=== PATIENT | male | born 1965 | race Caucasian/White ===

== ENCOUNTER 2023-06-04 10:05 | Emergency (ER) | payer OTHER, SELFPAY ==
[2023-06-04 10:10] VITALS: BP 135/79; BMI 28.6
[2023-06-04 10:27] LABS: % Basophils 1.3 % (0-2); % Eosinophils 3.6 % (0-6); % Immature Granulocytes 0.2 % (0-0.5); % Lymphocytes 30.9 % (20.5-51.1); % Monocytes 18.9 % (1.7-9.3); % Neutrophils 45.1 % (42.2-75.2); Absolute Basophils 0.1 10^3/uL (0-0.2); Absolute Eosinophils 0.2 10^3/uL (0-0.7); Absolute Lymphocytes 1.5 10^3/uL (1.2-3.4); Absolute Monocytes 0.9 10^3/uL (0.1-0.6); Absolute Neutrophils 2.1 10^3/uL (1.4-6.5); Hematocrit 38.4 % (39.0-52.0); Hemoglobin 12.7 g/dL (13.0-18.0); Mean Corp Hgb Conc. 33.1 g/dL (33.0-37.0); Mean Corpuscular Hgb 30.3 pg (27.0-31.0); Mean Corpuscular Volume 91.6 fL (80.0-94.0); Mean Platelet Volume 9.2 fL (7.4-10.4); Nucleated Red Blood Cells % 0 % (-); Platelet Count 303 10^3/uL (130-400); Red Blood Cell Count 4.19 10^6/uL (4.70-6.10); Red Cell Dist. Width 14.9 % (11.5-14.5); White Blood Cell Count 4.8 10^3/uL (4.8-10.8)
[2023-06-04 10:35] LABS: APTT 31.9 Sec (23.4-35.0); INR 0.99; PT 13.3 Sec (11.4-14.6)
[2023-06-04 10:43] LABS: ALT (SGPT) 14 U/L (0-50); AST (SGOT) 20 U/L (17-59); Albumin 3.4 g/dl (3.5-5.0); Alkaline Phosphatase 80 U/L (38-126); Blood Urea Nitrogen 8 mg/dl (9-20); Calcium 8.6 mg/dl (8.4-10.2); Carbon Dioxide 27 mmol/L (22-30); Chloride 104 mmol/L (98-107); Estimated Creatinine Clearance -14 ml/min; Glucose 101 mg/dl (70-99); Potassium 3.6 mmol/L (3.5-5.1); Sodium 138 mmol/L (135-145); Total Bilirubin 0.4 mg/dl (0.2-1.3); Total Protein 6.2 g/dl (6.3-8.2); eGFR > 60.00
--- NOTE | 2023-06-04 10:47 | ED.GENMED ---
History of Present Illness
<MARIA TERESA Florentino - Last Filed: 06/04/23 19:22>
General
Chief Complaint: Chest Pain
Source: patient and records
Exam Limitations: none
Time Seen by Provider: 06/04/23 10:12
Travel History
Have you had any contact with someone who has COVID-19?: No
Do you have any symptoms of coronavirus? Fever > 100 degrees, chills, cough, shortness of breath, sore throat, loss of taste or smell, muscle aches, or headache?: Yes
Symptoms:: Cough and ached
History of Present Illness
History of Present Illness:
This is a 57 y/o male with a PMH of ME, atrial fibrillation, and valvular disease who presents to the ED c/o chest pain, headache, slurred speech, lightheadedness, and confusion that woke him up from sleep this morning. He describes a constant
burning and 'tingling' pain on the left side of his chest that radiates into his right hand with some numbness and weakness. He received nitroglycerin and 324 mg aspirin from EMS on the way to the ED. This pain is worse when he leans over or sits
forward. His headache is a constant sharp ache in the left occipital region of his head with associated photophobia. He states he began getting blurred vision yesterday that has persisted into today. He also admits to 4 episodes of vomiting up
yellow sputum and 6 episodes of diarrhea yesterday.
He describes feeling SOB for the past few weeks and admits to stopping his 14 medications approximately 2 weeks ago because they made him feel tired. He also reports right-sided low back pain approximately 2 weeks ago that has since resolved. He
reports muscle aches and fatigue starting Saturday that prevented him from getting out of bed through Saturday. He states that he has not eaten much in the last week and only urinated 3 times since Saturday. He denies tobacco and drug use. He admits
to drinking an occasional beer.
Past History
<MARIA TERESA Florentino - Last Filed: 06/04/23 19:22>
Past History
ED Past Medical History: Arrthythmia (Paroxysmal atrial fibrillation), CAD (Ischemic cardiomyopathy), CHF, GERD, HTN, Hypercholesterolemia, ME, Valvular disease, Psychiatric (Generalized anxiety disorder, suicide attempt, Depression) and Other
(Alcohol abuse history, pericardial tamponade, retrosternal hematoma, orthostatic hypotension, Headache, PNA, DVT)
ED Past Surgical History: Cardiac (Bioprosthetic mitral valve replacement, single-vessel CABG February 05, 2022) and Orthopedic (Right total knee replacement)
Social History
Tobacco: Former smoker
Alcohol: Former
Drug: Narcotics
Personal:
Living: with family (Common law marrage)
Employment: Employed
Family History
Family History: Cancer (Mother - gastric, father - gastric) and Other (Reviewed and noncontributory)
Review of Systems
<Deanne Lagos [facility] - Last Filed: 06/04/23 19:22>
Review of Systems
All Other Systems: ROS reviewed and negative except as documented in HPI and ROS
Constitutional: Reports other (Confusion); Denies fever
EENT: Reports other (Blurry vision)
Respiratory: Reports no symptoms
Cardiac: Reports chest pain
ABD/GI: Reports nausea, vomiting and diarrhea
: Reports no symptoms
Musculoskeletal: Reports no symptoms
Skin: Reports no symptoms
Neurological: Reports headache, weakness (Right hand), numbness (Right hand) and other (Lightheadedness)
Endocrine: Reports no symptoms
Hematologic/Lymphatic: Reports no symptoms
Phy Exam
<Deanne Lagos NIEVES - Last Filed: 06/04/23 19:22>
General Physical Exam
General Presentation: well appearing and no apparent distress
General age: appears stated age
General Skin: warm
General Habitus: normal
General Mental: alert
General Hydration: dry mucous membranes
Eye Exam
Eye Exam: PERRL
Cardiovascular Exam
Cardiovascular Exam: regular rate/rhythm and normal peripheral pulses (Equal 3+ radial pulses)
Pulmonary Exam
Pulmonary Exam: lungs clear, no respiratory distress, no rales, no crackles, no rhonchi and no wheezing
Gastrointestinal Exam
Gastrointestinal Exam: normal bowel sounds, no pulsatile mass, non distended, surgical scar (Epigastric) and tender (Periumbilical, RLQ)
Neurological Exam
Neurological Exam: alert, oriented x3, no motor deficits, speech normal and sensory deficit (Right digits 1-3)
[place] Coma Scale
Eye Opening: Spontaneous
Verbal Response: Oriented
Motor Response: Obeys Commands
GCS Total Score: 15
Mental
Mental Status: oriented to person, oriented to place and oriented to time
Describe Speech: normal speech
Cranial
Cranial Nerves: normal
Motor
Seizure Activity: none
Tremors: none
Sensory
Sensory Exam: decreased sensation (Right digits 1-3)
Cerebellar
Cerebellar Function: normal finger to nose and normal Romberg test
Skin Exam
Skin Exam: normal color and no rash
Psychiatric Exam
Psychiatric Exam: normal mood/affect
<Milad Nation MD - Last Filed: 06/05/23 08:08>
[place] Coma Scale
GCS Total Score: 15
Scores
<MARIA TERESA Florentino - Last Filed: 06/04/23 19:22>
Heart Score for Chest Pain Patients
STEMI patient?: No
History: Slightly or Non-Suspicious
ECG: Normal
Age: >45 - <65 years
Risk Factors: >/= 3 Risk Factors or History of CAD
Troponin: </= Normal Limit
Heart Score for Chest Pain Patients: 3
Heart Score Risk: 2.5% MACE over next 6 weeks
<Milad Nation MD - Last Filed: 06/05/23 08:08>
Heart Score for Chest Pain Patients
Heart Score for Chest Pain Patients: 3
Heart Score Risk: 2.5% MACE over next 6 weeks
Course
<MARIA TERESA Florentino - Last Filed: 06/04/23 19:22>
Orders/Labs/Results
Orders:
Orders
06/04/23 10:09
ECG [Electrocardiogram (*1)] Urgent
Reason for Study: Chest Pain
06/04/23 10:10
EKG- Treatment ONCE
06/04/23 10:18
Alcohol Urgent
Complete Blood Count/With Diff Urgent
Comprehensive Metabolic Panel Urgent
Erythrocyte Sed Rate Urgent
Comment: ADD ON
Ferritin Urgent
Comment: ADD ON
Folate Urgent
Comment: ADD ON
Free T4 Urgent
Lipase Urgent
PT/INR [Prothrombin Time] Urgent
PTT Urgent
TSH Reflex To Free T4 Urgent
Comment: ADD ON
Troponin I Urgent
Vitamin B12 Urgent
Comment: ADD ON
06/04/23 10:26
COVID-19 Antigen Urgent
Source: Nasal Swab
Influenza A+B Rapid Molecular Urgent
ALONSO Source: Nasal Swab
Specimen Description:
06/04/23 11:36
0.9% Sodium Chloride 500 ml [Nss] 500 ml IV BOLUS
Apixaban [Eliquis] 5 mg PO NOW STA
06/04/23 11:37
CR Chest - 2 Views Urgent
Comment:
Reason For Exam: chest pain
06/04/23 12:07
EKG- Treatment ONCE
06/04/23 12:08
Acetaminophen [Tylenol] 650 mg PO NOW STA
06/04/23 12:55
CT Head W/o Iv Contrast Urgent
Comment:
Reason For Exam: RUE weakness
06/04/23 13:36
Add On- LAB Routine
Comments:: Please add to today's labs or draw as routine
Tests Added?: TSH reflex, Ferritin, Folate, Vit. B12, ESR, EtOH
06/04/23 14:00
Electrocardiogram (*1) Urgent
Reason for Study: Chest Pain
06/04/23 14:34
Troponin I Urgent
06/04/23 15:18
Prochlorperazine [Compazine] 10 mg IV NOW STA
Abnormal Lab Results
06/04/23
10:18
RBC 4.19 L 10^6/uL
(4.70-6.10)
Hgb 12.7 L g/dL
(13.0-18.0)
Hct 38.4 L %
(39.0-52.0)
RDW 14.9 H %
(11.5-14.5)
Absolute Monos (auto) 0.9 H 10^3/uL
(0.1-0.6)
Monocytes % 18.9 H %
(1.7-9.3)
BUN 8 L mg/dl
(9-20)
Creatinine 0.6 L mg/dL
(0.7-1.3)
Glucose 101 H mg/dl
(70-99)
Ferritin 12.2 L ng/ml
(17.9-464.0)
Total Protein 6.2 L g/dl
(6.3-8.2)
Albumin 3.4 L g/dl
(3.5-5.0)
TSH (Reflex) 4.78 H uIU/ml
(0.47-4.68)
06/04/23 10:18
06/04/23 10:18
Vital Signs
Initial and Last Documented VS:
Initial Vital Signs
Temp Pulse Resp BP Pulse Ox
98.4 F 76 16 135/79 100
06/04/23 10:10 06/04/23 10:10 06/04/23 10:10 06/04/23 10:10 06/04/23 10:10
Last Documented Vital Signs
Temp Pulse Resp BP Pulse Ox
98.4 F 66 17 130/81 99
06/04/23 10:10 06/04/23 15:31 06/04/23 11:00 06/04/23 15:31 06/04/23 15:00
<Milad Nation MD - Last Filed: 06/05/23 08:08>
Orders/Labs/Results
Orders:
Orders
06/04/23 10:09
ECG [Electrocardiogram (*1)] Urgent
Reason for Study: Chest Pain
06/04/23 10:10
EKG- Treatment ONCE
06/04/23 10:18
Alcohol Urgent
Complete Blood Count/With Diff Urgent
Comprehensive Metabolic Panel Urgent
Erythrocyte Sed Rate Urgent
Comment: ADD ON
Ferritin Urgent
Comment: ADD ON
Folate Urgent
Comment: ADD ON
Free T4 Urgent
Lipase Urgent
PT/INR [Prothrombin Time] Urgent
PTT Urgent
TSH Reflex To Free T4 Urgent
Comment: ADD ON
Troponin I Urgent
Vitamin B12 Urgent
Comment: ADD ON
06/04/23 10:26
COVID-19 Antigen Urgent
Source: Nasal Swab
Influenza A+B Rapid Molecular Urgent
ALONSO Source: Nasal Swab
Specimen Description:
06/04/23 11:36
0.9% Sodium Chloride 500 ml [Nss] 500 ml IV BOLUS
Apixaban [Eliquis] 5 mg PO NOW STA
06/04/23 11:37
CR Chest - 2 Views Urgent
Comment:
Reason For Exam: chest pain
06/04/23 12:07
EKG- Treatment ONCE
06/04/23 12:08
Acetaminophen [Tylenol] 650 mg PO NOW STA
06/04/23 12:55
CT Head W/o Iv Contrast Urgent
Comment:
Reason For Exam: RUE weakness
06/04/23 13:36
Add On- LAB Routine
Comments:: Please add to today's labs or draw as routine
Tests Added?: TSH reflex, Ferritin, Folate, Vit. B12, ESR, EtOH
06/04/23 14:00
Electrocardiogram (*1) Urgent
Reason for Study: Chest Pain
06/04/23 14:34
Troponin I Urgent
06/04/23 15:18
Prochlorperazine [Compazine] 10 mg IV NOW STA
Abnormal Lab Results
06/04/23
10:18
RBC 4.19 L 10^6/uL
(4.70-6.10)
Hgb 12.7 L g/dL
(13.0-18.0)
Hct 38.4 L %
(39.0-52.0)
RDW 14.9 H %
(11.5-14.5)
Absolute Monos (auto) 0.9 H 10^3/uL
(0.1-0.6)
Monocytes % 18.9 H %
(1.7-9.3)
BUN 8 L mg/dl
(9-20)
Creatinine 0.6 L mg/dL
(0.7-1.3)
Glucose 101 H mg/dl
(70-99)
Ferritin 12.2 L ng/ml
(17.9-464.0)
Total Protein 6.2 L g/dl
(6.3-8.2)
Albumin 3.4 L g/dl
(3.5-5.0)
TSH (Reflex) 4.78 H uIU/ml
(0.47-4.68)
06/04/23 10:18
06/04/23 10:18
Vital Signs
Initial and Last Documented VS:
Initial Vital Signs
Temp Pulse Resp BP Pulse Ox
98.4 F 76 16 135/79 100
06/04/23 10:10 06/04/23 10:10 06/04/23 10:10 06/04/23 10:10 06/04/23 10:10
Last Documented Vital Signs
Temp Pulse Resp BP Pulse Ox
98.4 F 66 17 130/81 99
06/04/23 10:10 06/04/23 15:31 06/04/23 11:00 06/04/23 15:31 06/04/23 15:00
<MARIA TERESA Florentino - Last Filed: 06/04/23 19:22>
MDM/Problems Addressed
MDM/Problems Addressed:
Patient with PMH of ME, atrial fibrillation, and valvular disease presents to ED c/o chest pain, headache, slurred speech, lightheadedness, and confusion that woke him up from sleep this morning. He describes a constant burning and 'tingling' pain
on the left side of his chest that radiates into his right hand with some numbness and weakness. Pain was unresponsive to nitroglycerin and 324 mg aspirin from EMS on the way to the ED. Patient admits to stopping his 14 medications approximately 2
weeks ago. Labs and imaging are unremarkable. Presentation is consistent with viral syndrome.
<MARIA TERESA Florentino - Last Filed: 06/04/23 19:22>
*Critical Care Note
Total Time (30-74mins, 75-104mins- exclusive of procedures): Not Applicable
ED Attending Note
<MARIA TERESA Florentino - Last Filed: 06/04/23 19:22>
-
Portions of this chart may have been created with voice recognition software.� Occasional wrong word or��sound alike� substitutions may have occurred due to the inherent limitations of voice recognition software.
<Milad Nation MD - Last Filed: 06/05/23 08:08>
ED Attending Note
Patient seen and examined by attending physician: Yes
ED Attending Note:
Patient with history of coronary artery disease and recent valve replacement, on aspirin, Coumadin, and Eliquis, presents to ED secondary to intermittent chest pain since yesterday afternoon. Chest pain described as burning and achy across his left
chest, without any alleviating or exacerbating factors. Patient states that his chest pain is similar to chest pain that he has in the past requiring stent placement. Denies shortness of breath. In addition, over the past 2 weeks, patient has had
ongoing fatigue, generalized weakness, coughing, as well as vomiting and diarrhea, along with decreased appetite. Patient also reports mild diffuse headache, without blurry vision or dizziness. In addition, for the past 2 weeks, patient has
stopped taking all of his medications, and his medications 'were making him not feel good'. Denies recent travel or surgery. Denies leg pain or swelling. Denies back pain.
Physical Exam
General: no apparent distress, not acutely ill. afebrile
Head: nc/at. eomi
Neck: supple. no meningeal signs.
Heart: s1/s2 regular rate and rhythm, systolic ejection murmur. equal radial pulses.
Lungs: no acute respiratory distress. clear bilaterally
Abdomen: normal bowel sounds. not tender.
Neuro: alert and oriented. no focal neurological deficits. normal
Skin: no rash
Psychiatric: well kept. interactive and cooperative
Extremities: no edema. no calf tenderness.
Discussed with (cardiology) - will come and evaluate patient in ED. Requesting 2nd trop, which will be done @ 2pm.
Pt will be hydrated and reassessed. CP not responsive to NTG.
Patient with an unremarkable workup in ED, including blood work and imaging studies.
Patient evaluated by cardiology, Dr. Abarca, who feels the patient can be discharged home at this time with recommendation to reinitiate his home medications. Given 30 day supply of Eliquis by cardiology prior to discharge. Recommends patient to be
given script for toprol xl 12.5mg, Atorvastatin 40mg daily, aspirin 81 mg daily, and Eliquis 5mg bid.
Patient also evaluated by Dr. Kern, neurology, who also feels that patient's neurological deficit is likely secondary to migraine headache. Does not need further treatment/evaluation.
Pt's overall presentation is consistent with likely viral syndrome and patient is stable to be discharged home at this time, with strict precaution to not stop taking his medications on his own, and f/u with his [employer] as scheduled next month.
Pt expresses understanding at time of discharge.
Discharge Plan
Departure
Patient Disposition: Home (Routine Discharge)
Date of Disposition: 06/04/23
Time of Disposition: 15:37
Patient with high blood pressure during this ER visit?: Yes
Condition: Good
Discharge Problem:
Headache, Chest pain, Noncompliance with medication regimen, Viral syndrome
Instructions: Chest Pain (DC), Viral Syndrome (DC)
Prescriptions:
New
metoprolol succinate [Toprol XL] 25 mg tablet extended release 24 hr
12.5 mg PO DAILY Qty: 30 0RF
aspirin 81 mg tablet,chewable
81 mg PO DAILY Qty: 30 0RF
atorvastatin 40 mg tablet
40 mg PO DAILY Qty: 30 0RF
Eliquis 5 mg tablet
5 mg PO BID Qty: 60 0RF
No Action
furosemide 40 mg Tablet
40 mg PO DAILY 30 Days Qty: 30 0RF
levothyroxine 25 mcg tablet
25 mcg PO DAILY 30 Days Qty: 30 0RF
pantoprazole 40 mg Tablet,Delayed Release (Dr/Ec)
40 mg PO DAILY 30 Days Qty: 60 0RF
apixaban 5 mg Tablet
5 mg PO BID Qty: 60 0RF
aspirin 81 mg Capsule
81 mg PO DAILY 30 Days Qty: 30 0RF
atorvastatin 80 mg Tablet
80 mg PO QPM 30 Days Qty: 30 0RF
metoprolol succinate 25 mg Tablet Extended Release 24 Hr
12.5 mg PO HS 30 Days Qty: 15 0RF
Patient Comments:
05/31/22---patient thought the bottle said 1 whole tablet plus an 1/2 tablet and took this day.
amiodarone [Pacerone] 100 mg Tablet
100 mg PO DAILY 30 Days Qty: 30 0RF
gabapentin 100 mg Capsule
100 mg PO HS Qty: 30 0RF
Rx Instructions:
started in place of Lyrica
polyethylene glycol 3350 17 gram Powder In Packet
17 g PO DAILY PRN (Reason: constipation) Qty: 30 0RF
Rx Instructions:
new medication for constipation
acetaminophen 325 mg Tablet
650 mg PO Q4HPRN PRN (Reason: Mild Pain / Temp > 101) Qty: 1 0RF
ferrous sulfate 325 mg (65 mg iron) tablet
325 mg PO DAILY Qty: 30 0RF
Referrals:
Jamie Chong MD [Active] - 07/02/23 4:00 pm (You have cardiology follow up with Dr. Chong on July 02 at 4 pm in [address] in the [place] which is behind the hospital. If you are unable to make this appointment please call [phone]
to reschedule. )
UNKNOWN - PT DOES,NOT KNOW [Family Provider] -
Activity Restrictions/Additional Instructions:
As discussed, please follow-up with your [employer] next month for reevaluation. Your prescriptions have been sent electronically to [facility] pharmacy in [place].
Interventions
Interventions:
*Risk Screen - Suicide Last Done: 06/04/23 10:16
*General Assessment Last Done: 06/04/23 10:10
*Neglect/Abuse Screening Last Done: 06/04/23 10:16
*Nursing Disposition Last Done: 06/04/23 15:59
ED- Cardiac Assessment Last Done: 06/04/23 10:05
Discharge Date and Time
Discharge Date/Time: 06/04/23 15:59
[2023-06-04 10:51] LABS: COVID-19 Antigen Negative (Negative)
[2023-06-04 10:51] LABS: Troponin I 0.014 ng/ml
[2023-06-04 11:00] VITALS: BP 113/64
[2023-06-04 11:22] LABS: Lipase 86 U/L (23-300)
[2023-06-04] MEDS: NSS 500 IV (11:59)
[2023-06-04] MEDS: ELIQUIS 5 MG PO (12:00)
[2023-06-04] MEDS: TYLENOL 650 MG PO (12:16)
--- NOTE | 2023-06-04 12:25 | CON.CAR ---
Addendum entered and electronically signed by Sarath Abarca DO 06/04/23 16:22:
I saw and examined the patient.
The Oil Spreader Operator's note was reviewed and I agree with the note.
Comment:
Plan:
EKG and trop stable.
Discussed compliance with meds and follow up as he stopped everything and not followed up.
CP is atypical and with movement.
pt given samples of Eliquis.
Can stay off Amiodarone given the fact that he is maintaining sinus rhythm being off this med
From cardiac standpoint would recommend resuming:
Toprol 12.5 mg daily
Atorvastatin 40 mg daily
Eliquis 5 mg twice a day
Aspirin 81 mg daily
Neuro work up for weakness.
Reviewed with pt and ER.
Original Note:
Consultation
Consultation Request
Date/Time Consultation Requested: 06/04/2023
Date/Time Consultation Performed: 06/04/2023
Requesting Provider: Dr. Nation
Performing Provider: Myla Dunham PA-C for Dr. Sarath Abarca
Reason for Consultation: Chest pain
Medical History
-
History of Present Illness:
Patient is a 57-year-old male with past medical history significant for coronary artery disease status post CABG x 1 and mitral valve replacement January 2022 at [facility], ischemic cardiomyopathy-recovered, heart failure with mildly
reduced ejection fraction, hypertension, hyperlipidemia, paroxysmal atrial fibrillation, pulmonary hypertension, history of alcohol abuse and history of noncompliance. Previously patient had multiple admissions at this institution for recurrent
chest pain. He underwent cardiac catheterization in May 2022 which demonstrated chronic total occlusion of left circumflex, 80% ostial saphenous vein graft to OM with CONSTANCE II flow back flowing from proximal left circumflex. Decision at that
time was made for medical therapy and patient was placed on Imdur in addition to Toprol. Patient failed to follow-up in cardiology office with numerous no-shows and cancellations throughout 2022. Patient admits to discontinuing all his medications
approximately 2 weeks ago because they made him feel tired. Patient reports he started with upper respiratory symptoms approximately 1 week ago but did not seek medical attention and instead stayed in bed. He admits to poor oral hydration and food
intake over the last 4 to 5 days. On 06/03/2023 at approximately 3 PM he noted some intermittent chest pressure/tightness. He continued to have chest tightness and late in the evening noted some numbness and tingling of his right hand. He went to
bed and upon awakening this morning he continued to feel poorly. He went to work and developed severe chest pressure associated with right hand numbness tingling, headache and blurry vision. He reports his boss told him his speech was slurred and
he looked unwell. This prompted patient to come to emergency department for evaluation. IN ED EKG demonstrates normal sinus rhythm with right bundle branch block and T wave abnormality in lateral leads. Initial troponin undetectable. Repeat
troponin pending. Chest x-ray showed no acute cardiopulmonary abnormality. Patient negative for flu and COVID. Patient was provided Eliquis, IV fluid and Tylenol in emergency department. At time of this evaluation he still complains of occasional
intermittent chest discomfort worse with leaning forward or coughing. He still has some right upper extremity numbness tingling and feels that his trip rider strength is reduced. He also notes occasional intermittent blurry vision. Head CT is pending.
PMH:
-chronic HFmrEF
-chronic bifascicular block by EKG
-s/p biological mitral valve replacement 02/05/22
-CAD
s/p CABG x1 - VG to OM by Dr. Meadows at [facility] 02/05/22
Post operative course complicated by pericardial tamponade, atrial fibrillation, retrosternal hematoma
-history of ischemic cardiomyopathy, recovered by echo 02/2022
-scarring of posterior medial papillary muscles
-history of pericardial effusion/large hematoma of anterior mediastinum
-extensive superficial venous thrombosis of R greater saphenous vein
-paroxysmal atrial fibrillation
-pulmonary hypertension
-ETOH history
-anxiety
-hypertension
-hyperlipidemia
-iron deficiency anemia
-h/o COVID illness 12/2021
-History of drug abuse with methamphetamine and amphetamines on tox screen
-noncompliance with medications/follow up
Past Medical History
Past Medical History: Other (See HPI)
Past Surgical History: Cardiac (CABG x 1 with mitral valve replacement 02/05/2022 [facility]) and Orthopedic (Right total knee replacement)
Social History
Tobacco: Non-Smoker
Alcohol: Occasional
Drug: Other (Denies)
Personal: Single
Employment: Employed (Works and lives at [employer] )
Family History
Family History: Early CAD, Hypertension and Other (Stroke)
Allergies / Home Medications
Allergy/AdvReac Type Severity Reaction Status Date / Time
latex Allergy throat Verified 06/04/23 10:15
closes
propoxyphene napsylate Allergy throat Verified 06/04/23 10:15
[From Pam-N 100] closes
Medication Instructions Recorded Confirmed Type
apixaban 5 mg tablet 5 mg PO BID Blood clot 05/30/22 06/06/22 Rx
prevention/tx #60 tabs
aspirin 81 mg capsule 81 mg PO DAILY Blood clot 05/30/22 06/06/22 Rx
prevention/tx 30 days #30 caps
furosemide 40 mg tablet 40 mg PO DAILY Fluid 05/30/22 06/06/22 Rx
retention/Swelling 30 days #30 tabs
levothyroxine 25 mcg tablet 25 mcg PO DAILY Thyroid 30 days 05/30/22 06/06/22 Rx
#30 tabs
pantoprazole 40 mg tablet,delayed 40 mg PO DAILY Gastrointestinal 05/30/22 06/06/22 Rx
release issue 30 days #60 tabs
amiodarone 100 mg tablet (Pacerone) 100 mg PO DAILY Heart 06/01/22 06/06/22 Rx
disease/condition 30 days #30 tabs
atorvastatin 80 mg tablet 80 mg PO QPM High cholesterol 30 06/01/22 06/06/22 Rx
days #30 tabs
metoprolol succinate 25 mg 12.5 mg PO HS Blood pressure 30 06/01/22 06/06/22 Rx
tablet,extended release 24 hr days #15 tabs
acetaminophen 325 mg tablet 650 mg PO Q4HPRN PRN Mild Pain / 06/07/22 Rx
Temp > 101 #1 tab
ferrous sulfate 325 mg (65 mg 325 mg PO DAILY #30 tabs 06/07/22 Rx
iron) tablet
gabapentin 100 mg capsule 100 mg PO HS #30 caps 06/07/22 Rx
polyethylene glycol 3350 17 gram 17 g PO DAILY PRN constipation #30 06/07/22 Rx
oral powder packet ea
Review of Systems
-
History Source: Patient
All other systems: Negative unless noted
Physical Exam
Vital Signs
Temp Pulse Resp BP Pulse Ox
98.4 F 69 17 113/64 97
06/04/23 10:10 06/04/23 11:00 06/04/23 11:00 06/04/23 11:00 06/04/23 11:00
GEN: No distress, awake, Ox3, sitting in bed
HEENT: supple, anicteric, mmm
LUNGS: CTA, no wheezes/rales
CV: Reg, S1/S2, no murmur, rub or gallop
ABD: soft, BS+, NT/ND
EXT: No edema, clubbing or cyanosis
NEURO: Slight weakness RUE 4/5 trip rider strength, otherwise non-focal
SKIN: No rash, warm,dry, pink
Lab Results
06/04/23 10:18
06/04/23 10:18
Troponin I 0.014 ng/ml 06/04/23 10:18
Impression / Plan
-
Primary Tabulating Clerk: Dr. Chong
Assessment:
Presents 06/04/2023 with chest pain, headache, right hand numbness/tingling/weakness and intermittent blurred vision
-chronic HFmrEF
-chronic bifascicular block by EKG
-s/p biological mitral valve replacement 02/05/22
-CAD
s/p CABG x1 - VG to OM by Dr. Meadows at [facility] 02/05/22
Post operative course complicated by pericardial tamponade, atrial fibrillation, retrosternal hematoma
-history of ischemic cardiomyopathy, recovered by echo 02/2022
-scarring of posterior medial papillary muscles
-history of pericardial effusion/large hematoma of anterior mediastinum
-extensive superficial venous thrombosis of R greater saphenous vein
-paroxysmal atrial fibrillation
-pulmonary hypertension
-ETOH history
-anxiety
-hypertension
-hyperlipidemia
-iron deficiency anemia
-h/o COVID illness 12/2021
-History of drug abuse with methamphetamine and amphetamines on tox screen
-noncompliance with medications/follow up
TTE 05/25/2022: EF 45-50%, severely dilated left atrium, bioprosthetic mitral valve, peak/mean gradient 5/3 mmHg, no mitral regurgitation, peak/mean aortic valve gradient 24/15 mmHg, aortic valve area 1.2 cm2, EF was 55% in February
[facility] 05/29/22:LM:LI. LAD:LI. D1 20-30% mid. pLCx LICENSED SURVEYOR at origin. RCA:LI. SVG-OM2 80% ostial and 80-90% distal anastomotic lesion with CONSTANCE II flow and backfilling from prox LCx
Plan:
Patient is a 57-year-old male with past medical history significant for coronary artery disease status post CABG x 1 and mitral valve replacement January 2022 at [facility], ischemic cardiomyopathy-recovered, heart failure with mildly
reduced ejection fraction, hypertension, hyperlipidemia, paroxysmal atrial fibrillation, pulmonary hypertension, history of alcohol abuse and history of noncompliance. Previously patient had multiple admissions at this institution for recurrent
chest pain. He underwent cardiac catheterization in May 2022 which demonstrated chronic total occlusion of left circumflex, 80% ostial saphenous vein graft to OM with CONSTANCE II flow back flowing from proximal left circumflex. Decision at that
time was made for medical therapy and patient was placed on Imdur in addition to Toprol. Patient failed to follow-up in cardiology office with numerous no-shows and cancellations throughout 2022. Patient admits to discontinuing all his medications
approximately 2 weeks ago because they made him feel tired. Patient reports he started with upper respiratory symptoms approximately 1 week ago but did not seek medical attention and instead stayed in bed. He admits to poor oral hydration and food
intake over the last 4 to 5 days. On 06/03/2023 at approximately 3 PM he noted some intermittent chest pressure/tightness. He continued to have chest tightness and late in the evening noted some numbness and tingling of his right hand. He went to
bed and upon awakening this morning he continued to feel poorly. He went to work and developed severe chest pressure associated with right hand numbness tingling, headache and blurry vision. He reports his boss told him his speech was slurred and
he looked unwell. This prompted patient to come to emergency department for evaluation. IN ED EKG demonstrates normal sinus rhythm with right bundle branch block and T wave abnormality in lateral leads. Initial troponin undetectable. Repeat
troponin pending. Chest x-ray showed no acute cardiopulmonary abnormality. Patient negative for flu and COVID. Patient was provided Eliquis, IV fluid and Tylenol in emergency department. At time of this evaluation he still complains of occasional
intermittent chest discomfort worse with leaning forward or coughing. He still has some right upper extremity numbness tingling and feels that his trip rider strength is reduced. He also notes occasional intermittent blurry vision. Head CT is pending.
-Presents with chest pressure associated with right hand numbness tingling, headache and blurry vision.
-Consider checking head CT given complaints concerning for stroke and patient being off Eliquis
-Chest pressure has been ongoing for almost 24 hours with initial negative troponin. Repeat is pending. EKG shows sinus rhythm with bifascicular block similar to prior tracings. Chest x-ray no acute abnormality. Blood pressure is well
controlled. If second troponin is negative would resume usual outpatient cardiac medications.
-Patient has known coronary artery disease and has done very well on medical therapy for almost 1 year. Patient does admit to discontinuing all his medication approximately 2 weeks ago due to fatigue. Called [facility] pharmacy and confirmed that
patient has not refilled majority of his medications since late summer 2022. However he did fill amiodarone and Eliquis in March 2023.
-From cardiac standpoint would recommend resuming:
Toprol 12.5 mg daily
Atorvastatin 40 mg daily
Eliquis 5 mg twice a day
Aspirin 81 mg daily
-History of paroxysmal atrial fibrillation previously on low-dose amiodarone 100 mg a day and anticoagulation with Eliquis 5 mg daily. Would hold on restarting amiodarone would resume Eliquis 5 mg twice a day.
-Discussed with the patient importance of compliance of taking his medication and keeping regular outpatient cardiology and primary care physician follow-ups. Will arrange for outpatient cardiology follow-up.
Data Reviewed
-
EKG: Report Reviewed by me, Discussed with Physician, Discussed with Nurse and Discussed with Patient
Radiology: Report Reviewed by me, Discussed with Physician, Discussed with Nurse and Discussed with Patient
Labs: Labs Reviewed by me, Discussed with Physician, Discussed with Nurse and Discussed with Patient
Old Records: Reviewed
[2023-06-04 12:51] VITALS: BP 141/84
[2023-06-04 13:00] VITALS: BP 132/73
--- NOTE | 2023-06-04 13:42 | CON.NEURO4 ---
Addendum entered and electronically signed by Elder Kern MD 06/04/23 16:50:
Studies reviewed.
I have personally examined the patient. I reviewed and agree with the PIPE FITTER AMMONIA's Note.
My addenda:
Awake, alert, interactive. No acute distress.
Speech intact.
Follows 2-step requests w/o difficulty. No tremor.
Extra-ocular movements grossly intact.
Facial movements full and symmetric. Hearing intact to normal conversational volume.
Normal UE movements bilaterally.
Neck: full ROM.
Chest: no dyspnea
Heart: no JVD
Ext: (-) Clubbing, (-) Cyanosis, (-) Edema
IMPRESSIONS/RECOMMENDATIONS:
Abrupt onset of right hand discomfort
Most likely secondary to return of prior peripheral neuropathy which could be attributed to the patient's prior to overexposure for which the patient was utilizing gabapentin
Start Pregabalin 50 mg 3 times a day
Eventual EMG study of right hand
Blurred vision likely due to migraine
Will continue to follow patient, peripherally.
Original Note:
Documented by User: Maryse Singleton NP 06/04/23 15:24
Consultation - Neurology 4
-
CONSULTING PHYSICIAN: Elder Kern MD
REFERRING PHYSICIAN: ER/Dr. Nation
DICTATED BY: FAY Mtz
DATE/TIME OF REQUEST: 06/04/23
DATE/TIME OF CONSULTATION: 06/04/23
Reason for Consultation: Right hand numbness
History of Present Illness:
This is a 57-year-old right-handed male who has presented to the hospital with report of chest pain, slurred speech, blurred vision, headache, and right hand numbness. Patient has been evaluated by our inpatient Neurology service in the past for
report of headache, blurry vision, and left hand and left leg numbness in the setting of chest pain.
From previous evaluation by Dr. Kern on 05/27/22:
'Patient presented to this hospital's emergency department on May 24, 2022 with acute onset chest pain and shortness of breath.� Patient also reported left hand and leg numbness at that time.� His hospitalization subsequently has been troubled
by significant chest pain requiring a rapid response from hospital staff.
The patient did have a similar report of left-sided numbness immediately following his cardiothoracic surgery.� An evaluation for possible stroke at the outside hospital was performed and described as unremarkable.
Since his hospitalization, the patient did undergo MRI of brain and following same the patient experienced an episode of bilateral blurred vision in addition to his usual left lower and upper extremity weakness and numbness.
�I had chest pain real bad then� after NTG� developed blurriness.�
Continued blurriness, intermittent, only with chest pain and headache.
Blurriness worse in the left more than the right. Headache started 3 days ago immediately prior to onset of blurred vision. No blurriness without headache. Headache behind the left ear, shooting, lasting until medication provided. Headache
improvement is associated with left arm and leg numbness intensity improvement.'
MRI brain and carotid ultrasound were negative for stroke and significant stenosis/dissection. Patient was provided prochlorperazine for migraine and also started on gabapentin and iron supplementation for neuropathy and iron deficiency.
06/04/23: Patient reports that two weeks ago he stopped taking all of his medications due to them making him feel tired. Last Saturday (05/29/23), he reports developing flu-like symptoms including muscle aches, fatigue, and diarrhea lasting 5 days.
He had little to eat or drink. Then yesterday afternoon (06/03/23) he started to have mild chest discomfort. This morning (06/04/23), he reports waking up from sleep at 0330 with severe chest pain radiating into his right hand. His right hand 1st,
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 He also notes a severe left posterior headache associated with photophobia, nausea, and several episodes of vomiting. He went to work as usual
and his boss told him his speech sounded slurred. When he went to push the elevator button his vision was blurry and he had a hard time finding the button. CT head was obtained in the ER and is negative for any acute findings. It demonstrates a
small foci of CSF density within the periventricular white matter bilaterally, lateral to the posterior bodies of the lateral ventricles. These appear stable from previous examinations. ER VS: 98.4 F, HR 76, BP 135/79, RR 16, 100% RA. Alcohol level
is 22. Negative for Flu and COVID. Currently, patient reports that his symptoms are ongoing. He reports that the last time he had a headache was last May 2022. He also notes chronic tingling in bilateral feet. He denies any dizziness, swallowing
difficulty, ataxia, palpitations, and shortness of breath.
Past Medical History: Afib (Eliquis), HTn, HLD, CAD, MR, HFpEF, pulmonary hypertension, pericardial tamponade, retrosternal hematoma, orthostatic hypotension, peripheral neuropathy, anxiety, suicide attempt, premature
Surgical History: CABG x1, MVR, R TKR
Family History: Father- CVAs. Sister- brain tumor.
Social History: Former tobacco. Rare alcohol. Former alcohol abuse. Positive for amphetamines in the past.
Allergies: Latex, propoxyphene napsylate.
Home Medications: See below.
Review of Symptoms:
Patient denies any fever, headache, chest pain, shortness of breath, GI or symptoms.
�Per the HPI.�All systems are reviewed negative except above.
Physical Exam:
The patient is afebrile, abdomen is nondistended, breathing is unlabored, skin is warm and dry, no edema.
NIH Stroke Scale:
I performed the NIH stroke scale on the patient on 06/04/23 at 1345. The patient scored 0 points on the NIH stroke scale assessment, which were assigned as follows: See below.
Neurologic Examination:
The patient is awake, alert and oriented x 3. He is able to follow commands and answer questions appropriately. There is no aphasia or dysarthria. On cranial nerve assessment, pupils are 3 mm bilateral, round and reactive to light and
accommodation. Visual vickers are full. Extraocular movements are intact. Facial sensations are intact and bilaterally symmetrical, there is no facial asymmetry. Hearing is intact bilaterally to normal conversation volume. Tongue palate and uvula
are midline. Sternocleidomastoid strengths are full bilaterally. Motor strengths are 5/5 bilateral upper and lower extremities on medical research Tanana scale. Finger spread and wrist flexion 5/5 bilateral. There is no drift or involuntary
movement noted. Deep tendon reflexes are 2+ bilateral upper and lower extremities and Babinski is absent bilaterally. Sensations of touch, temperature and vibration are intact and bilaterally symmetrical. There was no extinction noted on double
simultaneous stimulation. Coordination is intact by finger to nose bilaterally. Endorses hand pain with Phalen test.
Lab Results: See below.
Neuro Imaging:
1. CT Head 06/04/23: Small foci of CSF density within the periventricular white matter bilaterally, lateral to the posterior bodies of the lateral ventricles. These appear stable from previous examinations, with main differential considerations of
prominent perivascular spaces versus old infarct.
Differentials for the patient's presentation include:
1. Migraine with brainstem features likely producing blurry vision
2. Right hand 1st, 2nd, and 3rd finger numbness, unclear etiology. Possible etiology carpal tunnel syndrome, cervical myelopathy.
3. Low concern for stroke.
4. Chest pain.
5. Medication noncompliance.
6. Iron deficiency anemia.
7. Peripheral neuropathy likely secondary to alcohol abuse.
Patient has the following risk factors for their symptoms: CAD, AFib, hypothyroid, neuropathy, HTN,
IV Tenecteplase/IAT candidacy: Not a candidate due to NIHSS 0, unclear diagnosis.
Recommendations:
-Provide prochlorperazine 10mg IV x1 now for migraine.
-Restart home Eliquis 5mg BID. Aspirin continuation per Cardiology recommendation.
-Checking blood work for metabolic abnormalities.
-Continue home gabapentin and iron supplement.
-Consider EMG as an outpatient for carpal tunnel evaluation.
-If not improvement in symptoms with headache relief, consider further neurological imaging.
Discussed patient care with: Dr. Kern, the patient
Vital Signs and Labs
-
Vital Signs and Labs:
Vital Signs
Temp Pulse Resp BP Pulse Ox
98.4 F 69 17 113/64 97
06/04/23 10:10 06/04/23 11:00 06/04/23 11:00 06/04/23 11:00 06/04/23 11:00
Lab Results
06/04/23 10:18
06/04/23 10:18
PT 13.3 Sec (11.4-14.6) 06/04/23 10:18
INR 0.99 06/04/23 10:18
APTT 31.9 Sec (23.4-35.0) 06/04/23 10:18
Sodium 138 mmol/L (135-145) 06/04/23 10:18
Potassium 3.6 mmol/L (3.5-5.1) 06/04/23 10:18
BUN 8 mg/dl (9-20) L 06/04/23 10:18
Glucose 101 mg/dl (70-99) H 06/04/23 10:18
Calcium 8.6 mg/dl (8.4-10.2) 06/04/23 10:18
Medications
-
Home Medications
Medication Instructions Recorded
apixaban 5 mg tablet 5 mg PO BID Blood clot 05/30/22
prevention/tx #60 tabs
aspirin 81 mg capsule 81 mg PO DAILY Blood clot 05/30/22
prevention/tx 30 days #30 caps
furosemide 40 mg tablet 40 mg PO DAILY Fluid 05/30/22
retention/Swelling 30 days #30 tabs
levothyroxine 25 mcg tablet 25 mcg PO DAILY Thyroid 30 days 05/30/22
#30 tabs
pantoprazole 40 mg tablet,delayed 40 mg PO DAILY Gastrointestinal 05/30/22
release issue 30 days #60 tabs
amiodarone 100 mg tablet (Pacerone) 100 mg PO DAILY Heart 06/01/22
disease/condition 30 days #30 tabs
atorvastatin 80 mg tablet 80 mg PO QPM High cholesterol 06/01/22
days #30 tabs
metoprolol succinate 25 mg 12.5 mg PO HS Blood pressure 06/01/22
tablet,extended release 24 hr days #15 tabs
acetaminophen 325 mg tablet 650 mg PO Q4HPRN PRN Mild Pain / 06/07/22
Temp > 101 #1 tab
ferrous sulfate 325 mg (65 mg 325 mg PO DAILY #30 tabs 06/07/22
iron) tablet
gabapentin 100 mg capsule 100 mg PO HS #30 caps 06/07/22
polyethylene glycol 3350 17 gram 17 g PO DAILY PRN constipation #30 06/07/22
oral powder packet ea
NIH Stroke Score
Subsequent NIH Scale
Date of Subsequent NIH Scale: 06/04/23
Time of Subsequent NIH Scale: 11:30
NIH Stroke Score
Level of Consciousness: 0 - Alert
LOC Questions: 0-Answers both correctly
LOC Commands: 0-Performs both correctly
Best Horizontal Gaze: 0-Normal
Visual Vickers: 0=Normal, no visual loss
Facial Palsy: 0=Normal, symmetrical
Motor - Right Arm: 0=No drift 10 seconds
Motor - Left Arm: 0=No drift 10 seconds
Motor - Right Le-No drift 5 seconds
Motor - Left Le-No drift 5 seconds
Limb Ataxia: 0-Absent
Sensation: 0-Normal
Best Language: 0-No aphasia
Dysarthria: 0-Normal
Extinction and Inattention: 0-No abnormality
Total Score:: 0

Documented by User: Elder Kern MD 06/04/23 16:42
NIH Stroke Score
NIH Stroke Score
Total Score:: 0
[2023-06-04 14:45] LABS: Alcohol 22 mg/dl
[2023-06-04 15:10] LABS: Troponin I < 0.012 ng/ml
[2023-06-04 15:13] LABS: Erythrocyte Sed Rate 17 mm/hour (0-20)
[2023-06-04] MEDS: COMPAZINE 10 MG IV (15:28)
[2023-06-04 15:30] LABS: TSH Reflex To Free T4 4.78 uIU/ml (0.47-4.68)
[2023-06-04 15:31] VITALS: BP 130/81
[2023-06-04 15:34] LABS: Ferritin 12.2 ng/ml (17.9-464.0)
[2023-06-04 15:58] LABS: Free T4 1.08 ng/dl (0.78-2.19)
[2023-06-04 16:05] LABS: Folate 18.9 ng/ml (2.76-20); Vitamin B12 297 pg/ml (239-931)
== END 2023-06-04 15:59 | disposition home or self-care (01) ==
LOC: EMR 10:05
PROVIDERS: EMERGENCY PHYSICIAN Emergency Medicine; OTHER PHYSICIAN Nuclear Medicine Nuclear Cardiology; OTHER PHYSICIAN Psychiatry & Neurology Neurology
DX: B34.9 Viral infection, unspecified (principal); R07.89 Other chest pain; R42 Dizziness and giddiness; R41.0 Disorientation, unspecified; R47.81 Slurred speech; R20.2 Paresthesia of skin; R20.0 Anesthesia of skin; H53.8 Other visual disturbances; R11.10 Vomiting, unspecified; R51.9 Headache, unspecified; R19.7 Diarrhea, unspecified; R06.02 Shortness of breath; Z11.52 Encounter for screening for COVID-19; M54.50 Low back pain, unspecified; Z91.148 Patient's other noncompliance with medication regimen for other reason; I25.2 Old myocardial infarction; I48.0 Paroxysmal atrial fibrillation; I25.10 Atherosclerotic heart disease of native coronary artery without angina pectoris; I25.5 Ischemic cardiomyopathy; I11.0 Hypertensive heart disease with heart failure; D50.9 Iron deficiency anemia, unspecified; I45.2 Bifascicular block; I82.811 Embolism and thrombosis of superficial veins of right lower extremity; E78.00 Pure hypercholesterolemia, unspecified; F19.11 Other psychoactive substance abuse, in remission; F41.9 Anxiety disorder, unspecified; G62.9 Polyneuropathy, unspecified; I27.20 Pulmonary hypertension, unspecified; I50.32 Chronic diastolic (congestive) heart failure; K21.9 Gastro-esophageal reflux disease without esophagitis; Z95.1 Presence of aortocoronary bypass graft; Z95.3 Presence of xenogenic heart valve; Z96.651 Presence of right artificial knee joint; Z86.16 Personal history of COVID-19; Z86.718 Personal history of other venous thrombosis and embolism; Z87.891 Personal history of nicotine dependence; Z88.8 Allergy status to other drugs, medicaments and biological substances; Z91.040 Latex allergy status
CPT/HCPCS: 99285; 96374; 96361; 70450; 71046; 80053; 82077; 82607; 82728; 82746; 83690; 84439; 84443; 84484; 85025; 85610; 85652; 85730; 87502; 87811; 93005

== ENCOUNTER 2023-07-21 14:28 | Inpatient (IN) | payer OTHER, SELFPAY ==
[2023-07-21] VITALS (16 sets, daily range): BP systolic 108–163; BP diastolic 70–115; BMI 29.6
--- NOTE | 2023-07-21 12:02 | ED.GENMED ---
History of Present Illness
General
Chief Complaint: Chest Pain
Source: patient
Exam Limitations: none
Time Seen by Provider: 07/21/23 11:56
History of Present Illness
History of Present Illness:
See MDM
Past History
Past History
ED Past Medical History: Arrthythmia (Paroxysmal atrial fibrillation), CAD (Ischemic cardiomyopathy), CHF, GERD, HTN, Hypercholesterolemia, [place], Valvular disease, Psychiatric (Generalized anxiety disorder, suicide attempt, Depression) and Other
(Alcohol abuse history, pericardial tamponade, retrosternal hematoma, orthostatic hypotension, Headache, PNA, DVT)
ED Past Surgical History: Cardiac (Bioprosthetic mitral valve replacement, single-vessel CABG February 05, 2022) and Orthopedic (Right total knee replacement)
Social History
Tobacco: Former smoker
Alcohol: Former
Drug: Narcotics
Personal:
Living: with family (Common law marrage)
Employment: Employed
Family History
Family History: Cancer (Mother - gastric, father - gastric) and Other (Reviewed and noncontributory)
Phy Exam
Physical Exam
Physical Exam:
See MDM
Scores
Heart Score for Chest Pain Patients
STEMI patient?: No
History: Highly Suspicious
ECG: Significant ST-Depression
Age: >45 - <65 years
Risk Factors: >/= 3 Risk Factors or History of CAD
Troponin: >/= 3 x Normal Limit
Heart Score for Chest Pain Patients: 9
Heart Score Risk: 72.7 % MACE over next 6 weeks
Course
Orders/Labs/Results
Orders:
Orders
07/21/23 11:57
EKG [Electrocardiogram (*1)] Urgent
Reason for Study: Chest Pain
07/21/23 11:58
EKG- Treatment ONCE
07/21/23 12:03
Tib/Fib, Left 2 View [CR Leg Tibia/fibula Left 2 Vw] Urgent
Comment:
Reason For Exam: distal anterior may injury
07/21/23 12:16
Complete Blood Count/With Diff Urgent
Comprehensive Metabolic Panel Urgent
Manual Differential Urgent
NT-proBNP Urgent
Troponin I Urgent
07/21/23 13:09
Consult Cardiology [CARDIOLOGY CONSULT] Routine
Consulting Provider: Jamie Chong
Was physician already notified: Yes
07/21/23 13:11
Aspirin Chewable [Low Strength Aspirin] 324 mg PO NOW STA
Nitroglycerin Sublingual [Nitrostat (Sublingual)] 0.4 mg SL NOW STA
Nitroglycerin Sublingual [Nitrostat (Sublingual)] 0.4 mg SL [id number] PRN
Abnormal Lab Results
07/21/23
12:16
RBC 4.29 L 10^6/uL
(4.70-6.10)
Hgb 12.8 L g/dL
(13.0-18.0)
Hct 38.2 L %
(39.0-52.0)
RDW 15.3 H %
(11.5-14.5)
Monocytes (Manual) 14 H %
(2-9)
Chloride 108 H mmol/L
(98-107)
Creatinine 0.6 L mg/dL
(0.7-1.3)
Glucose 105 H mg/dl
(70-99)
Troponin I 0.066 H* ng/ml
07/21/23 12:16
07/21/23 12:16
Vital Signs
Initial and Last Documented VS:
Initial Vital Signs
Temp Pulse Resp Pulse Ox
98.1 F 81 17 98
07/21/23 11:58 07/21/23 11:58 07/21/23 11:58 07/21/23 11:58
Last Documented Vital Signs
Temp Pulse Resp Pulse Ox
98.1 F 81 17 97
07/21/23 11:58 07/21/23 11:58 07/21/23 11:58 07/21/23 12:09
MDM/Problems Addressed
Differential Diagnosis Includes:
HPI and MDM Narrative:
58-year-old male presenting with left leg pain. Patient states he injured his leg on his exercise bike. He was having trouble controlling the bleeding. He is on Eliquis. On arrival, the bleeding has subsided. Patient incidentally complaining of
chest discomfort. He states this has been ongoing since yesterday. Symptoms are worse with exertion. Patient given 4 baby aspirin by EMS
Will obtain x-ray of his leg. Screening EKG shows ST depressions laterally. Will obtain troponin
Physical exam
General: Well appearing and non-toxic
HEENT: protecting airway
Neck: appears supple
CV: No evidence of cyanosis. Regular rate and rhythm
Resp: No accessory muscle use. Lungs clear
Abd: Non-distended
Extremities: Abrasion to distal left leg. No active bleeding
Neuro: alert
Psych: Normal affect
Skin: Intact
Problems Addressed including Acute and Chronic Conditions affecting care:
1. Chest pain
Acuity: acute
Prognosis: stable
Details: Given duration of symptoms will obtain troponin. EKG shows ST depressions with T wave inversions laterally which appears persistent with his prior EKG
2. Leg pain
Acuity: acute
Prognosis: stable
Details: Will obtain x-ray rule out fracture
Updates
Patient found to have an elevated troponin. Cardiology made aware. Will give dose of nitroglycerin. Will admit given the ongoing chest pain with worsening EKG and elevated troponin
Differential Diagnosis (but not limited to): ACS, fracture, noncardiac chest pain
Testing considered: Chest x-ray
Drug therapy (if applicable): OTC meds, please see d/c instruction regarding Rx drugs
Amount and/or Complexity of Data Reviewed
Clinical info obtained from: Patient
External data reviewed: N/A
Labs I independently reviewed (but not limited to): Elevated troponin
Radiology: X-ray independently reviewed: No tibial fracture noted
Pulse Ox: not hypoxic
EKG independently reviewed: Sinus rhythm, left axis, ST depression and T wave inversion laterally
Locker Room Attendant: N/A
Critical Care: N/A
Risk of Complication:
Social Determinants of health: Good social support
Discussed with other providers: Cardiology, hospitalist
Escalation of Care includes Admit/Obs: Given the worsening EKG with elevated troponin, will admit
Occasional wrong word or 'sound a like' substitutions may have occurred due to the inherent limitations of voice recognition software. Read the chart carefully and recognize, using context, where substitutions have occurred.
*Critical Care Note
Total Time (30-74mins, 75-104mins- exclusive of procedures): Not Applicable
ED Attending Note
-
Portions of this chart may have been created with voice recognition software.� Occasional wrong word or��sound alike� substitutions may have occurred due to the inherent limitations of voice recognition software.
Discharge Plan
Departure
Patient Disposition: Admit
Date of Disposition: 07/21/23
Time of Disposition: 13:13
Admit to: Telemetry
Presentation/result/management discussed w/ accepting MD/DO: Hospitalist
Discharge Problem:
Acute non-ST elevation myocardial infarction (NSTEMI)
Prescriptions:
No Action
furosemide 40 mg Tablet
40 mg PO DAILY 30 Days Qty: 30 0RF
levothyroxine 25 mcg tablet
25 mcg PO DAILY 30 Days Qty: 30 0RF
pantoprazole 40 mg Tablet,Delayed Release (Dr/Ec)
40 mg PO DAILY 30 Days Qty: 60 0RF
apixaban 5 mg Tablet
5 mg PO BID Qty: 60 0RF
aspirin 81 mg Capsule
81 mg PO DAILY 30 Days Qty: 30 0RF
atorvastatin 80 mg Tablet
80 mg PO QPM 30 Days Qty: 30 0RF
metoprolol succinate 25 mg Tablet Extended Release 24 Hr
12.5 mg PO HS 30 Days Qty: 15 0RF
Patient Comments:
05/31/22---patient thought the bottle said 1 whole tablet plus an 1/2 tablet and took this day.
amiodarone [Pacerone] 100 mg Tablet
100 mg PO DAILY 30 Days Qty: 30 0RF
gabapentin 100 mg Capsule
100 mg PO HS Qty: 30 0RF
Rx Instructions:
started in place of Lyrica
polyethylene glycol 3350 17 gram Powder In Packet
17 g PO DAILY PRN (Reason: constipation) Qty: 30 0RF
Rx Instructions:
new medication for constipation
acetaminophen 325 mg Tablet
650 mg PO Q4HPRN PRN (Reason: Mild Pain / Temp > 101) Qty: 1 0RF
ferrous sulfate 325 mg (65 mg iron) tablet
325 mg PO DAILY Qty: 30 0RF
metoprolol succinate [Toprol XL] 25 mg tablet extended release 24 hr
12.5 mg PO DAILY Qty: 30 0RF
aspirin 81 mg tablet,chewable
81 mg PO DAILY Qty: 30 0RF
atorvastatin 40 mg tablet
40 mg PO DAILY Qty: 30 0RF
Eliquis 5 mg tablet
5 mg PO BID Qty: 60 0RF
Referrals:
AKASH TADEO MD [Family Provider] -
Interventions
Interventions:
*Risk Screen - Suicide Last Done: 07/21/23 11:58
*General Assessment Last Done: 07/21/23 11:58
*Neglect/Abuse Screening Last Done: 07/21/23 11:58
ED- Fall Risk Assessment Last Done: 07/21/23 12:09
*ED COVID-19 Vaccine History Last Done: 07/21/23 11:58
ED- Cardiac Assessment Last Done: 07/21/23 12:09
--- NOTE | 2023-07-21 12:15 | EDRN ---
Received patient from home via EMS. Patient called EMS for a bleeding cut on his left lower leg then told them that he has been having chest pain for several days. Patient with c/o 8 out of 10 chest pain on arrival. Patient received ASA 324mg PO
prior to arrival. Patient stated that he cut his left may Saturday on the pedal of his bike and took the bandage off today that EMS placed and he started to bleed. Patient stated that he's had intermittent chest pain for the past few days and has
been SOB when he walks short distances. Patient stated that he has not missed any of his doses of his medications. Patient with c/o pain and swelling left lower leg and left foot. +2 pedal pulse bilaterally. Patient with c/o increased numbness in
his left foot.
[2023-07-21 12:31] LABS: Hematocrit 38.2 % (39.0-52.0); Hemoglobin 12.8 g/dL (13.0-18.0); Mean Corp Hgb Conc. 33.5 g/dL (33.0-37.0); Mean Corpuscular Hgb 29.8 pg (27.0-31.0); Mean Platelet Volume 8.9 fL (7.4-10.4); Nucleated Red Blood Cells % 0 % (-); Platelet Count 283 10^3/uL (130-400); Red Blood Cell Count 4.29 10^6/uL (4.70-6.10); Red Cell Dist. Width 15.3 % (11.5-14.5); White Blood Cell Count 5.7 10^3/uL (4.8-10.8)
[2023-07-21 12:42] LABS: ALT (SGPT) 19 U/L (0-50); AST (SGOT) 33 U/L (17-59); Albumin 3.9 g/dl (3.5-5.0); Alkaline Phosphatase 103 U/L (38-126); Blood Urea Nitrogen 10 mg/dl (9-20); Calcium 8.6 mg/dl (8.4-10.2); Carbon Dioxide 22 mmol/L (22-30); Chloride 108 mmol/L (98-107); Estimated Creatinine Clearance > 125 ml/min; Glucose 105 mg/dl (70-99); Potassium 3.8 mmol/L (3.5-5.1); Sodium 136 mmol/L (135-145); Total Bilirubin 0.6 mg/dl (0.2-1.3); Total Protein 6.8 g/dl (6.3-8.2); eGFR > 60.00
[2023-07-21 12:56] LABS: Absolute Neutrophils -Man Diff 2.9 10^3/uL (1.4-6.5); Band Neutrophils 0 % (0-3); Eosinophils 3 % (0-6); Hypochromasia 1+; Lymphocytes 32 % (20-51); Monocytes 14 % (2-9); Normal RBC Morphology No; Platelets Checked Yes; Segmented Neutrophils 51 % (42-75); Total Cells Counted 100
[2023-07-21 13:01] LABS: NT-proBNP 1090 pg/ml; Troponin I 0.066 ng/ml
[2023-07-21] MEDS: NITROSTAT (SUBLINGUAL) 0.400000000000000022 MG SL ×3 (13:15→16:02)
--- NOTE | 2023-07-21 13:25 | HPS.HSE ---
Addendum entered and electronically signed by Dede Choi MD 07/21/23 20:10:
I saw and examined the patient.
The COLLATOR or PA's note was reviewed and I agree with the note.
Comment:
58M Afib CAD CHF GERD HTN HLD PA Valvular Dz NAYA Depression, Orthostatic Hypotension, DVT p/w multiple complaints including chest pain left upper extremity numbness and shortness of breath.� Prompted to come to ED when he started having left-sided
chest heaviness and left arm numbness, intermittent unclear duration each episode.� Prior to chest pain patient also reported recent LLE minor cut, two days ago, excessive bleeding d/t Eliquis, treated by EMS with bandage, bleeding since resolved.
�Day prior to presentation to ED, patient reported developing exertional dyspnea,�hot flashes,�runny nose, congestion, and diarrhea.� Patient also reported headache dizziness blurry vision worse with activity.� Further reported COVID exposure week
prior.� ER evaluation was notable for troponin and BNP elevation and concern ST depression EKG.� Received nitro with improvement in chest pain symptoms.� VSS
Physical Exam
General: No pallor, cyanosis, or jaundice.
HEENT: Throat clear. PERRLA Normocephalic atraumatic
NECK: Supple. No JVD Carotid Bruits
RESPIRATORY: Lungs clear to auscultation. No crackles wheezes stridor
CVS: S1, S2 normal. RRR.� No murmur, rub or gallop.
ABDOMEN: Soft, non-tender. No distension. BS+/normal.
EXTREMITIES: LLE wound noted small cut non-bleeding, no pitting edema
WAITER/WAITRESS FORMAL: AOx3
# Chest pain possible acute coronary syndrome
#Headache/nasal congestion/diarrhea likely viral, COVID Flu neg
#left LE swelling/pain
#Paroxysmal Atrial Fibrillation
#Possible Acute on Chronic HFpEF
#GERD
#dizziness possibly Orthostatic Hypotension
#Hypothyroidism
#iron def anemia
#Neuropathy on gabapentin and Lyrica
#HLD
IVU
Trend troponin
Cardio Consult
LLE XR noted no acute abn�s
Check venous duplex
Cont home eliquis amiodarone metoprolol
Pain control
Duresis as per cardio
Daily weight I/O
Monitor orthostatic vitals
Check ECHO
Original Note:
Family Physician
-
Family Physician: AKASH TADEO MD
Chief Complaint
-
Left-sided chest pain
History of Present Illness
58-year-old with past medical history for A-fib, coronary artery disease, congestive heart failure, GERD, hypertension, hyperlipidemia, PA, valvular disease, generalized anxiety, depression, orthostatic hypotension, DVT presented to us with left
lower extremities bleeding after he nicked his leg on bike. It happened on Saturday, he was able to call EMS and they placed a Band-Aid. Yesterday he started having short of breath which was worse with exertion. Stated hot flashes. Patient also
complained of runny nose, congestion. Patient stated he had an exposure to COVID last week. Patient stated some headache and dizziness which is worse with activity. Patient also complained of blurry vision. Today morning he started having
left-sided chest heaviness and left arm numbness, which is constant and nonexertional. Patient also complained of diarrhea since yesterday. Denied abdominal pain, nausea, vomiting. Patient denies any dysuria hematuria.
In the ER noted elevated Trope. He received nitro in the ER. Admitting for further management
Medical History
Past Medical History
Past Medical History: Reports Other
Additional Past Medical History:
Paroxysmal A-fib
Coronary artery disease
Ischemic cardiomyopathy
CHF
GERD
Hypertension
Hyperlipidemia
MRI
Valvular disease
Anxiety disorder
Depression
Alcohol abuse
Pericardial tamponade
Retrosternal hematoma
Orthostatic hypotension
DVT
Past Surgical History: Reports Other
Additional Past Surgical History:
Coronary artery bypass graft
Right total knee replacement
Social History
Tobacco: Non-smoker
Alcohol: Occasional
Drug: None
Personal: Single
Living: Alone
Employment: Employed
Family History
Family History: Not pertinent
Allergies / Home Medications
Allergies reflects when Allergies were last updated in [email or web address].
Home Medications with original date entered in [email or web address]
Allergy/Medication List:
Allergies
Allergy/AdvReac Type Severity Reaction Status Date / Time
latex Allergy throat Verified 06/04/23 10:15
closes
propoxyphene napsylate Allergy throat Verified 06/04/23 10:15
[From [facility]] closes
Home Medications
apixaban 5 mg tablet 5 mg PO BID Blood clot prevention/tx #60 tabs 05/30/22
furosemide 40 mg tablet 40 mg PO DAILY Fluid retention/Swelling 30 days #30 tabs 05/30/22
levothyroxine 25 mcg tablet 25 mcg PO DAILY Thyroid 30 days #30 tabs 05/30/22
pantoprazole 40 mg tablet,delayed release 40 mg PO DAILY Gastrointestinal issue 30 days #60 tabs 05/30/22
amiodarone 100 mg tablet (Pacerone) 100 mg PO DAILY Heart disease/condition 30 days #30 tabs 06/01/22
ferrous sulfate 325 mg (65 mg iron) tablet 325 mg PO DAILY #30 tabs 06/07/22
gabapentin 100 mg capsule 100 mg PO HS #30 caps 06/07/22
polyethylene glycol 3350 17 gram oral powder packet 17 g PO DAILY PRN constipation #30 ea 06/07/22
atorvastatin 40 mg tablet 40 mg PO DAILY #30 tabs 06/04/23
metoprolol succinate 25 mg tablet,extended release 24 hr (Toprol XL) 12.5 mg PO DAILY #30 tabs 06/04/23
pregabalin 100 mg capsule 100 mg PO DAILY 07/21/23
Review of Systems
-
Constitutional: Reports No Symptoms
EENT: Reports No Symptoms
Respiratory: Reports Trouble Breathing
Cardiac: Reports Chest Pain
Abdomen/GI: Reports No Symptoms and Diarrhea
: Reports No Symptoms
Musculoskeletal: Reports No Symptoms
Skin: Reports No Symptoms
Neurological: Reports Dizzy and Headache
Endocrine: Reports No Symptoms
Hematologic/Lymphatic: Reports No Symptoms
Psych: Reports No Symptoms
Physical Exam
Vital Signs
Vital Signs
Temp Pulse Resp Pulse Ox
98.1 F 81 17 97
07/21/23 11:58 07/21/23 11:58 07/21/23 11:58 07/21/23 12:09
Physical Exam
General: Well Developed, Well Nourished and No Apparent Distress
HEENT: NormoCephalic, Moist mucous membranes and Atraumatic
Respiratory: Clear
Cardiac: S1/S2 and Regular Rhythm; No Murmur or Rub
GI: Soft, Non Tender, Non Distended and Normal Bowel Sounds; No Organomegaly
Rectal: Deferred by Provider
Musculoskeletal: No Clubbing, No Cyanosis, No Edema and Other (Left lower extremity edema)
Skin: No Rash
Neuro: AO x 3 and Nonfocal/grossly intact
Psych: Calm
Laboratory Results
-
07/21/23 12:16
07/21/23 12:16
Laboratory Results
Total Bilirubin 0.6 mg/dl (0.2-1.3) 07/21/23 12:16
AST 33 U/L (17-59) 07/21/23 12:16
ALT 19 U/L (0-50) 07/21/23 12:16
Alkaline Phosphatase 103 U/L (38-126) 07/21/23 12:16
Troponin I 0.066 ng/ml H* 07/21/23 12:16
Data Reviewed
-
Diagnostic Radiology: Report Reviewed by me
Lab Data: Labs Reviewed by me
Impression/Plan
-
# Chest pain likely acute coronary syndrome
-Troponin 0.066
-EKG with ST depression and T wave inversion
-Received nitro in ER
-asa in ER
-trend trop
-Cardiology consulted
#Headache/nasal congestion/diarrhea likely viral
-recent exposure to covid
-obtain covid and flu
-Tylenol prn for CHÁVEZ
#left LE swelling/pain
-x ray pending
-elevate the left LE
-obtain Duplex
#Paroxysmal Atrial Fibrillation
�- In sinus rhythm at present.
�- Continue� Amiodarone; Eliquis ,metoprolol
�- Cardiology eval as noted above.
#Chronic HFpEF
�- furosemide continued
-not in acute exacerbation
#GERD
-PPI continued
#dizzy likely from Orthostatic Hypotension
�- Patient was previously on midodrine which was discontinued during recent hospitalizations.
�- Monitor orthostatic signs during hospital stay
#Hypothyroidism
�- Continue current T4 supplementation.
#iron def anemia
-ferrous sulfate continued
#Neuropathy on gabapentin and Lyrica
#HLD
-statin continued
#DVT Prophylaxis:� On Eliquis
#Code Status:� Full
[2023-07-21 14:27] LABS: COVID-19 Antigen Negative (Negative)
--- NOTE | 2023-07-21 15:54 | CON.CAR ---
Consultation
Consultation Request
Date/Time Consultation Requested: 07/21/2023 13: 00
Date/Time Consultation Performed: 07/21/2023 13: 30
Requesting Provider: Nella
Performing Provider: Arlette
Reason for Consultation: Chest pain, shortness of breath
Medical History
-
History of Present Illness:
History of Present Illness:
Tre has past medical history significant for coronary artery disease status post CABG x 1 and mitral valve replacement January 2022 at [facility], ischemic cardiomyopathy-recovered, heart failure with mildly reduced ejection fraction,
hypertension, hyperlipidemia, paroxysmal atrial fibrillation, pulmonary hypertension, history of alcohol abuse and history of noncompliance.� Previously patient had multiple admissions at this institution for recurrent chest pain.� He underwent
cardiac catheterization in May 2022 which demonstrated chronic total occlusion of left circumflex, 80% ostial saphenous vein graft to OM with CONSTANCE II flow back flowing from proximal left circumflex.� Decision at that time was made for medical
therapy and patient was placed on Imdur in addition to Toprol.�
Patient failed to follow-up in cardiology office with numerous no-shows and cancellations. He has stopped all of his medications in the past as well. He was seen in the ER in May 2023 with complaints of chest pain and right hand numbness. He
was discharged. Of note he had stopped all of his medications 2 weeks prior to that ER visit.
He presents to the ER with left leg pain after injuring his leg on exercise bike. He had difficulty controlling the bleeding. In ER the bleeding have subsided. He incidentally mentioned to ER staff he had chest discomfort and shortness of breath
and was admitted for further workup and treatment.
He claims to have shortness of breath with walking minimal distances. He also has chest heaviness. 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
PMH:
-chronic HFmrEF
-chronic bifascicular block by EKG
-s/p biological mitral valve replacement 02/05/22
-CAD
s/p CABG x1 - VG to OM by Dr. Meadows at [facility] 02/05/22
Post operative course complicated by pericardial tamponade, atrial fibrillation, retrosternal hematoma-history of ischemic cardiomyopathy, recovered by echo 02/2022
-scarring of posterior medial papillary muscles
-history of pericardial effusion/large hematoma of anterior mediastinum
-extensive superficial venous thrombosis of R greater saphenous vein
-paroxysmal atrial fibrillation
-pulmonary hypertension
-ETOH history
-anxiety
-hypertension
-hyperlipidemia
-iron deficiency anemia
-h/o COVID illness 12/2021
-History of drug abuse with methamphetamine and amphetamines on tox screen
-noncompliance with medications/follow up
Past Medical History
Past Medical History: Other (See HPI)
Past Surgical History: Cardiac (CABG x 1 with mitral valve replacement 02/05/[address] [facility] by Dr. Meadows) and Orthopedic (Right total knee replacement surgery)
Social History
Tobacco: Non-Smoker
Alcohol: Occasional
Drug: None
Personal: Single
Living: Alone
Employment: Employed (Works and lives at [employer])
Family History
Family History: Early CAD, Hypertension and Other (Stroke)
Allergies / Home Medications
Allergy/AdvReac Type Severity Reaction Status Date / Time
latex Allergy throat Verified 06/04/23 10:15
closes
propoxyphene napsylate Allergy throat Verified 06/04/23 10:15
[From Pam-N 100] closes
Medication Instructions Recorded Confirmed Type
apixaban 5 mg tablet 5 mg PO BID Blood clot 05/30/22 07/21/23 Rx
prevention/tx #60 tabs
furosemide 40 mg tablet 40 mg PO DAILY Fluid 05/30/22 07/21/23 Rx
retention/Swelling 30 days #30 tabs
levothyroxine 25 mcg tablet 25 mcg PO DAILY Thyroid 30 days 05/30/22 07/21/23 Rx
#30 tabs
pantoprazole 40 mg tablet,delayed 40 mg PO DAILY Gastrointestinal 05/30/22 07/21/23 Rx
release issue 30 days #60 tabs
amiodarone 100 mg tablet (Pacerone) 100 mg PO DAILY Heart 06/01/22 07/21/23 Rx
disease/condition 30 days #30 tabs
ferrous sulfate 325 mg (65 mg 325 mg PO DAILY #30 tabs 06/07/22 07/21/23 Rx
iron) tablet
gabapentin 100 mg capsule 100 mg PO HS #30 caps 06/07/22 07/21/23 Rx
polyethylene glycol 3350 17 gram 17 g PO DAILY PRN constipation #30 06/07/22 07/21/23 Rx
oral powder packet ea
atorvastatin 40 mg tablet 40 mg PO DAILY #30 tabs 06/04/23 07/21/23 Rx
metoprolol succinate 25 mg 12.5 mg PO DAILY #30 tabs 06/04/23 07/21/23 Rx
tablet,extended release 24 hr
(Toprol XL)
pregabalin 100 mg capsule 100 mg PO DAILY 07/21/23 07/21/23 History
Review of Systems
-
History Source: Patient
All other systems: Negative unless noted
Constitutional: No Symptoms
EENT: No Symptoms
Respiratory: Trouble Breathing
Cardiac: Chest Pain
Abdomen/GI: No Symptoms
: No Symptoms
Musculoskeletal: No Symptoms
Skin: No Symptoms
Neurological: No Symptoms
Endocrine: No Symptoms
Hematologic/Lymphatic: No Symptoms
Physical Exam
Vital Signs
Temp Pulse Resp BP Pulse Ox
98.1 F 75 24 116/81 98
07/21/23 11:58 07/21/23 15:15 07/21/23 15:15 07/21/23 15:09 07/21/23 15:15
Lab Results
07/21/23 12:16
07/21/23 12:16
Troponin I 0.066 ng/ml H* 07/21/23 12:16
Okh-H-Tycyhuqnkbi Pept 1090 pg/ml 07/21/23 12:16
General: Well developed, well nourished in NAD.
Neck: Supple, no JVD, HJR, carotids +2 B/L, no bruits bilaterally.
Heart: Non displaced PMI, RRR, no murmurs, No S3, S4, no rubs.
Lungs: Clear to auscultation bilaterally, no wheeze, rhonchi, rubs bilaterally,
normal expiratory phase.
Abdomen: Normal bowel sounds, soft, non-tender, non-distended.
Extremities: No clubbing, cyanosis or edema bilaterally.
Neuro: Grossly nonfocal, awake, alert and oriented x3.
Impression / Plan
-
Primary Sport Psychologist: [facility] durability technician on-call
Assessment:
Presents with left leg pain after an injury on his exercise bike
Incidentally complaining of dyspnea with minimal exertion and also chest heaviness
Admitted because of abnormal ECG and troponin of 0.066
Also possible acute diastolic CHF with proBNP of 1090
-chronic HFmrEF
-chronic bifascicular block by EKG
-s/p biological mitral valve replacement 02/05/22
-CAD
s/p CABG x1 - VG to OM by Dr. Meadows at [facility] 02/05/22
Post operative course complicated by pericardial tamponade, atrial fibrillation, retrosternal hematoma-history of ischemic cardiomyopathy, recovered by echo 02/2022
-scarring of posterior medial papillary muscles
-history of pericardial effusion/large hematoma of anterior mediastinum
-extensive superficial venous thrombosis of R greater saphenous vein
-paroxysmal atrial fibrillation
-pulmonary hypertension
-ETOH history
-anxiety
-hypertension
-hyperlipidemia
-iron deficiency anemia
-h/o COVID illness 12/2021
-History of drug abuse with methamphetamine and amphetamines on tox screen
-noncompliance with medications/follow up
TTE 05/25/2022: EF 45-50%, severely dilated left atrium, bioprosthetic mitral valve, peak/mean gradient 5/3 mmHg, no mitral regurgitation, peak/mean aortic valve gradient 24/15 mmHg, aortic valve area 1.2 cm2, EF was 55% in February
[facility] 05/29/22:LM:LI. LAD:LI. 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 RCA:LI.� SVG-OM2 80% ostial and 80-90% distal anastomotic lesion with CONSTANCE II flow and backfilling from prox LCx
Plan:
He has significantly noted chest chest heaviness after presenting for evaluation of left leg pain following injury on his exercise bike
He also complains of short of breath with minimal exertion and has elevated bnp
There may be an element of acute diastolic CHF
His ECG remains abnormal but might be slightly worse
Will try IV Lasix
Continue to track troponins and check echocardiogram
Of note patient has a history of signing out AGAINST MEDICAL ADVICE if pain medications are not given
Data Reviewed
-
EKG: Tracing Personally Visualized and interpreted
Medical Tests (Nuc Med, Echo etc): Report Reviewed by me
Labs: Labs Reviewed by me
Old Records: Reviewed
[2023-07-21] MEDS: LASIX 40 MG IV (16:34)
[2023-07-21] MEDS: DILAUDID 0.5 MG IV ×2 (16:50→22:43)
[2023-07-21 16:54] LABS: Troponin I 0.066 ng/ml
--- NOTE | 2023-07-21 17:39 | PTCARENOTE ---
Pt received from the ED awake, alert and oriented. Pt assisted to bed using the walker. Pt having difficulty ambulating due to the pain in the left lower leg and foot. Pt c/o of 7/10 chest heaviness with mild sob. Bp 139/91, sat 99%. 02 applied at
2Lnc, ECG done with no changes. Medicated with nitro 1/150 SL x 1 with complete relief. Medicated with Dilaudid as ordered for foot and leg pain with complete relief. Pt denies any other issues at this time. Presently eating dinner. Voiding large
amounts of clear yellow urine after receiving IV lasix.
[2023-07-21] MEDS: ELIQUIS 5 MG PO (19:41)
[2023-07-21 21:56] LABS: Troponin I 0.067 ng/ml
--- NOTE | 2023-07-21 22:00 | PTCARENOTE ---
Assumed care at 1900. Patient with left lower leg tenderness,limping on leg,small abrasion and leg elevated on pillows. Patient sent to US on on stretcher. Does complain of shortness of breath with exertion. Lungs Clear,HOB elevated. Can not lye
flat in bed. Has been sleeping in a recliner. NSR BBB, PVC's. Has a nose bleed that seems to have stopped. Patient in bed HOB elevated 45 degrees,call wong in reach
--- NOTE | 2023-07-21 23:46 | PTCARENOTE ---
Dilaudid given for left leg pain. Patient is pain free.
[2023-07-22] VITALS (19 sets, daily range): BP systolic 126–194; BP diastolic 86–124; PULSE 85–97; BMI 28.6
[2023-07-22 04:27] LABS: Hematocrit 38.5 % (39.0-52.0); Hemoglobin 12.8 g/dL (13.0-18.0); Mean Corp Hgb Conc. 33.2 g/dL (33.0-37.0); Mean Corpuscular Hgb 29.8 pg (27.0-31.0); Mean Corpuscular Volume 89.7 fL (80.0-94.0); Mean Platelet Volume 9.3 fL (7.4-10.4); Platelet Count 274 10^3/uL (130-400); Red Blood Cell Count 4.29 10^6/uL (4.70-6.10); Red Cell Dist. Width 14.8 % (11.5-14.5); White Blood Cell Count 7.2 10^3/uL (4.8-10.8)
[2023-07-22] MEDS: TYLENOL 650 MG PO (04:44)
[2023-07-22 04:51] LABS: Blood Urea Nitrogen 13 mg/dl (9-20); Calcium 9.2 mg/dl (8.4-10.2); Carbon Dioxide 29 mmol/L (22-30); Chloride 96 mmol/L (98-107); Estimated Creatinine Clearance 109 ml/min; Glucose 101 mg/dl (70-99); HDL Cholesterol 95 mg/dl; LDL Cholesterol, Calculated 61 mg/dl; Potassium 3.6 mmol/L (3.5-5.1); Sodium 133 mmol/L (135-145); Total Cholesterol 186 mg/dl (50-199); Triglyceride 150 mg/dl (10-149); Very Low Density Lipoprotein 30 mg/dl (0-30); eGFR > 60.00
[2023-07-22] MEDS: PACERONE 100 MG PO (06:22)
[2023-07-22] MEDS: SYNTHROID 25 MCG PO (06:22)
[2023-07-22] MEDS: TOPROL XL 12.5 MG PO (06:22)
--- NOTE | 2023-07-22 08:39 | PTCARENOTE ---
Rec'd pt from prev nsg shift AAOx3, a little drowsy but easily arousable this AM. Pt w/no c/o CP or SOB. Pt's VS stable w/HR in 80's & BP mildly elevated at 163/92. Plan of care discussed w/pt & no addtl needs at this time. Plan of care ongoing.
[2023-07-22 09:27] LABS: Glycohemoglobin (HgbA1c) 5.5 % (4.0-5.6)
[2023-07-22] MEDS: PROTONIX 40 MG PO (09:46)
[2023-07-22] MEDS: FEOSOL 325 MG PO (09:46)
[2023-07-22] MEDS: LASIX 40 MG IV (09:46)
[2023-07-22] MEDS: ELIQUIS 5 MG PO ×2 (09:46→20:27)
[2023-07-22] MEDS: LIPITOR 40 MG PO (09:46)
[2023-07-22] MEDS: FLUSH (NSS) 2 FLUSH IV (09:49)
--- NOTE | 2023-07-22 10:35 | CARDSERVLU ---
Echocardiogram with Lumason completed after protocol screening completed. Allergies verified.
Patent IV site: __R AC___
IV site flushed with 0.9% NaCl pre and post administration.
Diluted bolus method utilized to enhance visualization of ventricular juares.
Total volume given: _2.5___ mL
Patient tolerated all procedures well without complications.
--- NOTE | 2023-07-22 10:57 | PTCARENOTE ---
Pt c/o 6/10 'chest pressure' after going to the BR. Pt' VS stable, SpO2 level 97% on RA. EKG done. property technician at bedside for ordered Echocardiogram. Dr Chong notified. Plan of care ongoing.
[2023-07-22] MEDS: NITROSTAT (SUBLINGUAL) 0.400000000000000022 MG SL (11:27)
--- NOTE | 2023-07-22 13:15 | W.PN.HOSP.TC ---
Today's Communication/Plan
-
IV Lasix
Echo
avoid opiates
possible DC in 24 hours
Assessment / Plan
Assessment / Plan
Assessment:
Acute on chronic HFmrEF
- continue IV Lasix - requires intensive monitoring of I/Os, weights, lytes
- DCA Cards following
- Echo: pending
chest pain
HX of CAD s/p CABG x1 - VG to OM by Dr. Meadows at [facility] 02/05/22
- rare, intermittent but improved with SL Nitro
- continue home meds
- avoid Dilaudid or other opiates
LLE skin abrasion from trauma related to hitting his stationary bike
- Xray negative
Headache/nasal congestion/diarrhea likely viral, COVID Flu neg
- supportive care
Hx of Bio MVR
Parox A. Fib
- continue Amio/Eliquis/BB
Hx of extensive superficial venous thrombosis of R greater saphenous vein
Pulmonary hypertension
ETOH history
Anxiety
Essential hypertension - continue BB
Hyperlipidemia - statin
h/o COVID illness 12/2021
History of drug abuse with methamphetamine and amphetamines on tox screen
noncompliance with medications/follow up
GERD - continue PPI
Hypothyroidism - continue replacement
iron def anemia
Neuropathy on gabapentin and Lyrica
DVT ppx: Eliquis
Code: Full
Anticipated Discharge: Within 24 hours
Subjective/Interval History
-
Date of Service: July 22, 2023
earlier episode of chest pain improved with SL Nitro, no associated SOB/f/c
Weight down 4kg per scale
Objective Data
-
Labs:
Laboratory Results
07/22/23
03:35
WBC 7.2
Hgb 12.8 L
Hct 38.5 L
Plt Count 274
Sodium 133 L
Potassium 3.6
Chloride 96 L
Carbon Dioxide 29
BUN 13
Creatinine 0.7
Glucose 101 H
Calcium 9.2
Vital Signs:
Vital Signs
Temp Pulse Resp BP Pulse Ox
98.1 F 84 20 147/98 97
07/22/23 11:05 07/22/23 12:45 07/22/23 11:05 07/22/23 11:31 07/22/23 11:05
I&O
07/21/23 07/22/23 07/23/23
06:59 06:59 06:59
Intake Total 240 / 240 480 / 480
Output Total 2450 / 2450 500 / 500
Balance -2210 / -2210 -20 / -20
Physical Exam
-
General: No Apparent Distress
HEENT: Normocephalic and Atraumatic
Respiratory: Clear to Auscultation; Negative Wheezes or Rales
Cardiac: Regular Rhythm and S1/S2
GI: Soft and Nontender
Musculoskeletal: Edema, Right Lower Extrem, Edema, Left Lower Extrem and Other (LLE skin abrasion from trauma)
Neuro: AO x 3
Hematologic / Lymphatic: No Lymphadenopathy
Psych: Calm
Data Reviewed
-
Total Time Spent with Patient (in minutes): 51
Labs: Labs Reviewed by me
--- NOTE | 2023-07-22 13:31 | W.PN.CARDCBS ---
Addendum entered and electronically signed by Jamie Chong MD 07/22/23 13:50:
I saw and examined the patient.
The [employer] or PA's note was reviewed and I agree with the note.
Comment: General: Well developed, well nourished in NAD.
Neck: Supple, no JVD, HJR, carotids +2 B/L, no bruits bilaterally.
Heart: Non displaced PMI, RRR, no murmurs, No S3, S4, no rubs.
Lungs: Scattered rhonchi
Extremities: No clubbing, cyanosis or edema bilaterally.
Neuro: Grossly nonfocal, awake, alert and oriented x3.
He complains of chest pain and shortness of breath but looks very comfortable. He received Dilaudid for leg pain. Continue IV Lasix. Check echocardiogram. Troponins are flat.
Original Note:
Today's Communication / Plan
-
Ongoing IV diuresis
Impression / Plan
-
Primary Food Sales Clerk: [facility] tier lift operator on-call
Assessment:
Presents with left leg pain after an injury on his exercise bike
Incidentally complaining of dyspnea with minimal exertion and also chest heaviness
Admitted because of abnormal ECG and troponin of 0.066
Also possible acute diastolic CHF with proBNP of 1090
Acute on chronic HFmrEF
chronic bifascicular block by EKG
s/p biological mitral valve replacement 02/05/22
CAD
s/p CABG x1 - VG to OM by Dr. Meadows at [facility] 02/05/22
Post operative course complicated by pericardial tamponade, atrial fibrillation, retrosternal hematoma-history of ischemic cardiomyopathy, recovered by echo 02/2022
scarring of posterior medial papillary muscles
history of pericardial effusion/large hematoma of anterior mediastinum
extensive superficial venous thrombosis of R greater saphenous vein
paroxysmal atrial fibrillation
pulmonary hypertension
ETOH history
anxiety
hypertension
hyperlipidemia
iron deficiency anemia
h/o COVID illness 12/2021
History of drug abuse with methamphetamine and amphetamines on tox screen
noncompliance with medications/follow up
TTE 05/25/2022: EF 45-50%, severely dilated left atrium, bioprosthetic mitral valve, peak/mean gradient 5/3 mmHg, no mitral regurgitation, peak/mean aortic valve gradient 24/15 mmHg, aortic valve area 1.2 cm2, EF was 55% in February
[facility] 05/29/22:LM:LI. LAD:LI. 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 RCA:LI.� SVG-OM2 80% ostial and 80-90% distal anastomotic lesion with CONSTANCE II flow and backfilling from prox LCx
Plan:
-Troponin was flat at 0.067. Will managed as a nonischemic myocardial injury Troponin elevation due to acute HF
-Weight is down 7 lbs overnight and he reports symptomatic improvement. Cont Lasix 40 mg IV daily. Patient was taking Lasix 40 mg PO daily prior to admission.
-Cre stable at 0.7
-ECG reviewed by me and patient is in SR. He has a h/o pAfib. Outpatient doses of amiodarone 100 mg daily and Eliquis 5 mg BID have been continued.
-QTc 536 ms, recheck ECG in AM
Progress Note - Food Sales Clerk
Subjective
Date of Service: July 22, 2023
No chest pain
Objective
Labs:
07/22/23 03:35
07/22/23 03:35
Labs
Hgb 12.8 g/dL (13.0-18.0) L 07/22/23 03:35
Hct 38.5 % (39.0-52.0) L 07/22/23 03:35
Plt Count 274 10^3/uL (130-400) 07/22/23 03:35
Sodium 133 mmol/L (135-145) L 07/22/23 03:35
Potassium 3.6 mmol/L (3.5-5.1) 07/22/23 03:35
BUN 13 mg/dl (9-20) 07/22/23 03:35
Creatinine 0.7 mg/dL (0.7-1.3) 07/22/23 03:35
Glucose 101 mg/dl (70-99) H 07/22/23 03:35
Troponins
07/21/23 07/21/23 07/21/23
12:16 16:16 21:25
Troponin I 0.066 H* 0.066 H* 0.067 H*
Vital Signs and I&O:
Vital Signs
Temp Pulse Resp BP Pulse Ox
98.1 F 84 20 147/98 97
07/22/23 11:05 07/22/23 12:45 07/22/23 11:05 07/22/23 11:31 07/22/23 11:05
Vital Signs
Temp Pulse Resp BP Pulse Ox
98.1 F 84 20 147/98 97
07/22/23 11:05 07/22/23 12:45 07/22/23 11:05 07/22/23 11:31 07/22/23 11:05
Intake & Output
07/20/23 07/21/23 07/22/23 07/23/23
05:59 06:59 06:59 06:59
Intake Total 240 / 240 480 / 480
Output Total 2450 / 2450 500 / 500
Balance -2210 / -2210 -20 / -20
Physical Exam
Physical Exam
GEN: NAD. AAOx3
HEENT: EOMI
LUNGS: CTA B/L
CV: Reg
ABD: +BS
EXT: No edema B/L
NEURO: Non-focal
SKIN: No rash
--- NOTE | 2023-07-22 13:38 | CM ---
Reviewed chart. Met with Mr. Yates to review discharge plans. He states prior to admission he resides in the [facility]. He states he has been there for four years. He states prior to admission he was independent with adls and uses a
rolling walker for ambulation. He states he has a rolling walker at home and no other DME in the home. He states he has a prescription plan and uses [facility]. He states his friend will provide transportation home. Medical work-up in progress.
The discharge plan is to return back to the [facility] when medically stable.
--- NOTE | 2023-07-22 17:59 | PTCARENOTE ---
Pt CP free after 1 dose of SL Nitroglycerin earlier today. Pt's VS stable. Pt reporting less LLE pain as well. Plan of care ongoing.
[2023-07-22] MEDS: OCEAN, SALINE MIST 1 SPRAYS NASAL (21:59)
--- NOTE | 2023-07-23 00:28 | PTCARENOTE ---
Pt without complaints of CP. does note 'stuffy' nose- ocean nasal spray order obtained. POC discussed- pt frequently asking for snacks. Ambulating the as a self. SR w/ BBB and PVCs. HR 70s to 80s.
--- NOTE | 2023-07-23 03:10 | W.PN.UPDATE ---
Update Note
Progress Note Update
Patient with c/o 'stuffy' feeling associated with cough and need to blow nose. Covid and Flu swabs were negative. Order placed for [place] Saline Mist 2 sprays each nare QID PRN nasal congestion.
[2023-07-23 04:07] VITALS: BP 138/93
[2023-07-23 04:48] LABS: Hematocrit 39.7 % (39.0-52.0); Hemoglobin 13.6 g/dL (13.0-18.0); Mean Corp Hgb Conc. 34.3 g/dL (33.0-37.0); Mean Corpuscular Hgb 29.6 pg (27.0-31.0); Mean Corpuscular Volume 86.3 fL (80.0-94.0); Platelet Count 296 10^3/uL (130-400); Red Cell Dist. Width 14.8 % (11.5-14.5); White Blood Cell Count 6.2 10^3/uL (4.8-10.8)
[2023-07-23 05:08] LABS: Blood Urea Nitrogen 13 mg/dl (9-20); Calcium 9.5 mg/dl (8.4-10.2); Carbon Dioxide 28 mmol/L (22-30); Chloride 97 mmol/L (98-107); Estimated Creatinine Clearance 109 ml/min; Glucose 113 mg/dl (70-99); Potassium 3.4 mmol/L (3.5-5.1); Sodium 134 mmol/L (135-145); eGFR > 60.00
[2023-07-23 05:23] VITALS: BMI 28.2
[2023-07-23] MEDS: SYNTHROID 25 MCG PO (06:20)
[2023-07-23 07:54] VITALS: BP 145/98
[2023-07-23] MEDS: PROTONIX 40 MG PO (10:17)
[2023-07-23] MEDS: ELIQUIS 5 MG PO (10:18)
[2023-07-23] MEDS: PACERONE 100 MG PO (10:18)
[2023-07-23] MEDS: TOPROL XL 12.5 MG PO (10:18)
[2023-07-23] MEDS: FEOSOL 325 MG PO (10:18)
[2023-07-23] MEDS: LASIX 40 MG IV (10:18)
[2023-07-23] MEDS: LIPITOR 40 MG PO (10:19)
[2023-07-23] MEDS: KCL 40 MEQ PO (10:19)
[2023-07-23] MEDS: FLUSH (NSS) 2 FLUSH IV (10:19)
--- NOTE | 2023-07-23 11:02 | PTCARENOTE ---
Pt AAOX3 w/no c/o CP or SOB since yesterday AM. Pt's VS stable, HR in the 70's. 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 Pt reporting mild tenderness, rating pain at a 2/10. Pt given PO KCl for level of 3.4 this AM. Pt w/call wong
within reach & no addtl needs at this time. Plan of care ongoing.
[2023-07-23 12:06] VITALS: BP 128/96
--- NOTE | 2023-07-23 12:28 | W.PN.HOSP.TC ---
Today's Communication/Plan
-
dc to home
Assessment / Plan
Assessment / Plan
Assessment:
Acute on chronic HFmrEF
- DC on Lasix 40mg daily + KCL
- DCA Cards follow up in 1 week
- Echo: unchanged from prior
chest pain
HX of CAD s/p CABG x1 - VG to OM by Dr. Meadows at [facility] 02/05/22
- rare, intermittent but improved with SL Nitro
- continue home meds
- avoid Dilaudid or other opiates
LLE skin abrasion from trauma related to hitting his stationary bike
- Xray negative
Headache/nasal congestion/diarrhea likely viral, COVID Flu neg
- supportive care
Hx of Bio MVR
Parox A. Fib
- continue Amio/Eliquis/BB
Hx of extensive superficial venous thrombosis of R greater saphenous vein
Pulmonary hypertension
ETOH history
Anxiety
Essential hypertension - continue BB
Hyperlipidemia - statin
h/o COVID illness 12/2021
History of drug abuse with methamphetamine and amphetamines on tox screen
noncompliance with medications/follow up
GERD - continue PPI
Hypothyroidism - continue replacement
iron def anemia
Neuropathy on gabapentin and Lyrica
DVT ppx: Eliquis
Code: Full
More than 30 minutes spent in discharge including
Final examination of the patient
Summarizing hospital stay
Instructions for continuing care to all relevant caregivers
Preparation of discharge records, prescriptions, and referral forms
Total time spent (in minutes):41
Anticipated Discharge: Today
Subjective/Interval History
-
Date of Service: July 23, 2023
weight improving
eager for DC
Objective Data
-
Labs:
Laboratory Results
07/23/23
04:16
WBC 6.2
Hgb 13.6
Hct 39.7
Plt Count 296
Sodium 134 L
Potassium 3.4 L
Chloride 97 L
Carbon Dioxide 28
BUN 13
Creatinine 0.7
Glucose 113 H
Calcium 9.5
Vital Signs:
Vital Signs
Temp Pulse Resp BP Pulse Ox
97.7 F 89 20 145/98 98
07/23/23 12:10 07/23/23 08:00 07/23/23 12:10 07/23/23 07:54 07/23/23 12:10
I&O
07/22/23 07/23/23 07/24/23
06:59 06:59 06:59
Intake Total 240 / 240 1680 / 1680
Output Total 2450 / 2450 1450 / 1450
Balance -2210 / -2210 230 / 230
Physical Exam
-
General: No Apparent Distress
HEENT: Normocephalic and Atraumatic
Respiratory: Negative Wheezes or Rales
Cardiac: Regular Rhythm and S1/S2
GI: Soft
Genito-urinary: No Costovertebral Tender
Neuro: AO x 3
Psych: Calm
Data Reviewed
-
Total Time Spent with Patient (in minutes): 41
Labs: Labs Reviewed by me
--- NOTE | 2023-07-23 12:28 | W.PN.UPDATE ---
Update Note
Progress Note Update
Weight is down at least 9 lbs with Lasix 40 mg IV daily diuresis. Cre stable and patient has symptomatically improved. Recommend Lasix 40 mg PO daily upon discharge to home. Echo from yesterday reviewed and EF stable at 45-50% with mild to mod ,
overall echo unchanged compared to 05/2022. Cont amiodarone 100 mg daily and Eliquis 5 mg BID for paroxysmal Afib. Stable for d/c to home from a CV standpoint with HF follow up arranged within a week at our office.
[2023-07-23] MEDS: FLUZONE QUAD 2023-2024 SYRINGE 0.5 ML IM (13:10)
--- NOTE | 2023-07-23 13:29 | PTCARENOTE ---
Pt discharged to home w/girlfriend providing transportation. IV & telemetry removed. Pt received flu shot in L deltoid as ordered prior to D/C. Pt left w/personal belongings including cell phone & staffing branch manager.
--- NOTE | 2023-07-23 14:52 | W.DS.TRANS ---
DC Summary - Teacher Preschool
-
Discharge Instructions:
Sleep Apnea Risk Low
Discharge Diagnosis/Procedures acute CHF
Diet 2 Gram Sodium,Restrict fluids to 48 oz
Activity As tolerated
Bathing Restrictions None
Specialty Instructions Weigh Daily
Instructions:
Stand-Alone Forms:
Changes to Home Medications: No
Discharge Medications:
DC Medications w/original date entered in [employer]
ferrous sulfate 325 mg (65 mg iron) tablet 325 mg PO DAILY #30 tabs 06/07/22
polyethylene glycol 3350 17 gram oral powder packet 17 g PO DAILY PRN constipation #30 ea 06/07/22
amiodarone 100 mg tablet (Pacerone) 100 mg PO DAILY Heart disease/condition 30 days #30 tabs 07/23/23
apixaban 5 mg tablet 5 mg PO BID Blood clot prevention/tx #60 tabs 07/23/23
atorvastatin 40 mg tablet 40 mg PO DAILY #30 tabs 07/23/23
furosemide 40 mg tablet 40 mg PO DAILY Fluid retention/Swelling 30 days #30 tabs 07/23/23
gabapentin 100 mg capsule 100 mg PO HS #30 caps 07/23/23
levothyroxine 25 mcg tablet 25 mcg PO DAILY Thyroid 30 days #30 tabs 07/23/23
metoprolol succinate 25 mg tablet,extended release 24 hr 12.5 mg PO DAILY #30 tabs 07/23/23
pantoprazole 40 mg tablet,delayed release 40 mg PO DAILY Gastrointestinal issue 30 days #60 tabs 07/23/23
potassium chloride 20 mEq tablet,extended release 20 meq PO DAILY #30 tabs 07/23/23
pregabalin 100 mg capsule 100 mg PO DAILY Pain/Neuropathy #30 caps 07/23/23
Home Medication Changes
Pending Results: No
Total time spent discharging patient (in min): 41
== END 2023-07-23 13:36 | disposition home or self-care (01) | DRG 291 ==
LOC: IVU 14:28
PROVIDERS: Registered Nurse; ADMITTING PHYSICIAN Internal Medicine; ATTENDING PHYSICIAN Internal Medicine; CONSULT PHYSICIAN Internal Medicine Cardiovascular Disease; EMERGENCY PHYSICIAN Student in an Organized Health Care Education/Training Program; FAMILY PHYSICIAN General Practice
DX: I11.0 Hypertensive heart disease with heart failure (principal); I50.43 Acute on chronic combined systolic (congestive) and diastolic (congestive) heart failure; Z87.891 Personal history of nicotine dependence; I48.0 Paroxysmal atrial fibrillation; K21.9 Gastro-esophageal reflux disease without esophagitis; E03.9 Hypothyroidism, unspecified; D50.9 Iron deficiency anemia, unspecified; I27.20 Pulmonary hypertension, unspecified; F41.1 Generalized anxiety disorder; E78.00 Pure hypercholesterolemia, unspecified; Z91.148 Patient's other noncompliance with medication regimen for other reason; G62.9 Polyneuropathy, unspecified; I5A Non-ischemic myocardial injury (non-traumatic)
CPT/HCPCS: 73590; 80048; 80053; 80061; 83036; 83880; 84484; 85025; 85027; 87502; 87811; 90686; 93005; 93306; 93971; 99285; G0008; Q9950